=== PATIENT | male | born 1975 | race Caucasian/White ===

== ENCOUNTER 2017-06-17 14:57 | Emergency (ER) | payer OTHER ==
[~2017-06-17] VITALS: Ht 182.9 cm; Wt 108.9 kg
[~2017-06-17 14:57] MED LIST: ALBU90OI; ALBU90OI INH; ALBU90OI61 INH; Amoxicillin500 MG PO; FAMO20 PO; FLUT110OIA INH; GLIP5 PO; HYDACE5 PO; LISI20 PO; LORTAB 10 MG-3473 ML PO; METF500 PO; OMEP20ER; ONDA8ODT MM; PROM25 PO; Prednisone20 MG PO; Prevacid Soluta30 MG PO; Prilosec20 MG PO; RXPROM25 PO
[2017-06-17] MEDS ORDERED: LEVFLO500 PO ×2 (15:57→17:01)
[2017-06-17 16:04] LABS: Source, Urine Clean Catch
[2017-06-17 16:06] LABS: Appearance, Urine Cloudy (Clear); Bilirubin, Urine Neg (Neg); Blood, Urine 2+ (Neg); Color, Urine Yellow (P-Yellow); Glucose Qualitative, Urine Neg (Neg); Ketones, Urine Neg (Neg); Leukocyte Esterase, Urine 3+ (Neg); Nitrite, Urine Pos (Neg); Protein, Urine 2+ (Neg); Specific Gravity, Urine 1.015 (1.003-1.022); Urobilinogen, Urine NORM (Normal)
[2017-06-17 16:13] LABS: Bacteria Many /hpf; Squamous Epithelial Cells Few /hpf (Few); White Blood Cells, Urine TNTC /hpf (0-5)
== END 2017-06-17 17:05 | disposition home or self-care (01) ==
LOC: ER 14:57
PROVIDERS: Physician Assistant
DX: N45.1 Epididymitis (principal); N39.0 Urinary tract infection, site not specified; J45.909 Unspecified asthma, uncomplicated; E11.9 Type 2 diabetes mellitus without complications; Z87.891 Personal history of nicotine dependence
CPT/HCPCS: 76870; 81001; 87077; 87086; 87186; 96372; 99284; J0696

== ENCOUNTER 2017-07-17 02:22 | Emergency (ER) | payer OTHER ==
[~2017-07-17 02:22] MED LIST changes: +LEVFLO500 PO
== END 2017-07-17 02:57 | disposition home or self-care (01) ==
LOC: ER 02:22
DX: L25.9 Unspecified contact dermatitis, unspecified cause (principal); E11.9 Type 2 diabetes mellitus without complications; Z79.84 Long term (current) use of oral hypoglycemic drugs
CPT/HCPCS: 99283; Q0163

== ENCOUNTER → 2021-02-21 | Outpatient (CLI) | payer OTHER | LOC: LAB SHORT 14:45 | DX: R30.9 Painful micturition, unspecified (principal) | CPT/HCPCS: 87077; 87086; 87186 ==

== ENCOUNTER → 2022-11-02 | Outpatient (CLI) | payer OTHER ==
[~2022-11-02] MED LIST changes: +CEPH500 PO; +Pyridium100 MG PO
== END | disposition home or self-care (01) ==
LOC: LAB SHORT 18:31 → LAB 18:31
DX: N10 Acute pyelonephritis (principal)
CPT/HCPCS: 87077; 87086; 87186

== ENCOUNTER 2023-01-28 11:15 | Emergency (ER) | payer OTHER ==
[~2023-01-28] VITALS: Ht 180.3 cm; Wt 136.1 kg
[2023-01-28 12:14] LABS: BASOPHILS ABSOLUTE AUTO 0.04 K/mm3 (0.00-0.23); BASOPHILS PERCENT AUTO 0 % (0-2); EOSINOPHILS PERCENT AUTO 0 % (0-6); Hematocrit 46.3 % (37.0-53.0); Hemoglobin 14.7 g/dL (13.5-17.5); IMMATURE GRAN ABSOLUTE AUTO 0.11 K/mm3 (0.00-0.10); IMMATURE GRAN PERCENT AUTO 1 % (0-1); LYMPHOCYTES ABSOLUTE AUTO 1.06 K/mm3 (0.84-5.20); LYMPHOCYTES PERCENT AUTO 7 % (21-46); MONOCYTES ABSOLUTE AUTO 0.86 K/mm3 (0.16-1.47); MONOCYTES PERCENT AUTO 5 % (4-13); Mean Corpuscular HGB 27.5 pg (26.0-34.0); Mean Corpuscular HGB Conc 31.7 g/dL (31.5-36.5); Mean Corpuscular Volume 87 fL (80-100); Mean Platelet Volume 10.5 fL (9.1-12.4); NEUTROPHILS ABSOLUTE AUTO 13.93 K/mm3 (1.96-9.15); NEUTROPHILS PERCENT AUTO 87 % (41-73); NRBC ABSOLUTE 0.02 K/mm3 (0.00-0.02); NRBC Auto 0.1 /100 WBC (0.0-0.2); Platelet Count 309 K/mm3 (150-400); RDW Coefficient Variation 19.2 % (11.7-14.2); RDW Standard Deviation 57.8 fL (35.1-46.3); Red Blood Cell Count 5.35 M/mm3 (4.30-5.90)
[2023-01-28 12:37] LABS: Albumin, Blood 3.8 g/dL (3.4-5.0); Albumin/Globulin Ratio 0.9 (0.8-1.8); Bilirubin, Total 4.5 mg/dL (0.1-1.0); Bun/Creatinine Ratio 21.5 (12.0-20.0); Calcium, Blood 9.7 mg/dL (8.5-10.1); Creatinine, Blood 1.63 mg/dL (0.60-1.20); Globulin, Blood 4.2 g/dL (2.2-4.0); Potassium, Blood 4.6 mmol/L (3.5-5.5)
[2023-01-28 16:40] LABS: Calcium, Ionized (POC) 0.89 mmol/L (1.10-1.46); Chloride (POC) 102 mmol/L (98-108); Creatinine (POC) 2.1 mg/dL (0.8-1.3); Glucose (ISTAT POC) 33 mg/dL (70-99); Hemoglobin (POC) 16.3 g/dL (13.5-17.5); Potassium (POC) 5.4 mmol/L (3.5-5.5); Sodium (POC) 133 mmol/L (135-148); Total CO2 (POC) 18 mmol/L (21-32)
[2023-01-28 16:48] LABS: Base Excess Venous -14.5 mmol/L; Bicarbonate Venous 14.1 mmol/L (24.0-30.0); PCO2 Venous 39.7 mmHg (38-42); pH Blood Venous 7.16 (7.34-7.37)
[2023-01-28 17:05] LABS: Source, Urine Clean Catch
[2023-01-28 17:21] LABS: Appearance, Urine Cloudy (Clear); Bilirubin, Urine Neg (Neg); Blood, Urine 2+ (Neg); Color, Urine Yellow (P-Yellow); Glucose Qualitative, Urine 4+ (Neg); Ketones, Urine 1+ (Neg); Leukocyte Esterase, Urine 3+ (Neg); Nitrite, Urine Pos (Neg); Protein, Urine 2+ (Neg); Urobilinogen, Urine 2+ (Normal)
[2023-01-28 18:01] LABS: White Blood Cells, Urine 25-50 /hpf (0-5)
[2023-01-28 18:02] LABS: Bacteria Many /hpf; Squamous Epithelial Cells Rare /hpf (Few)
[2023-01-28 18:59] LABS: D-Dimer, Quantitative 7.45 mg/L FEU (0.00-0.52); International Normalized Ratio 3.25; Prothrombin Time Results 31.9 Sec (9.7-11.5)
[2023-01-28 19:00] LABS: BASOPHILS ABSOLUTE AUTO 0.04 K/mm3 (0.00-0.23); BASOPHILS PERCENT AUTO 0 % (0-2); EOSINOPHILS ABSOLUTE AUTO 0.01 K/mm3 (0.00-0.68); EOSINOPHILS PERCENT AUTO 0 % (0-6); Hematocrit 42.4 % (37.0-53.0); Hemoglobin 13.2 g/dL (13.5-17.5); IMMATURE GRAN ABSOLUTE AUTO 0.26 K/mm3 (0.00-0.10); IMMATURE GRAN PERCENT AUTO 2 % (0-1); LYMPHOCYTES ABSOLUTE AUTO 1.05 K/mm3 (0.84-5.20); LYMPHOCYTES PERCENT AUTO 6 % (21-46); MONOCYTES ABSOLUTE AUTO 1.21 K/mm3 (0.16-1.47); MONOCYTES PERCENT AUTO 7 % (4-13); Mean Corpuscular HGB 27.4 pg (26.0-34.0); Mean Corpuscular HGB Conc 31.1 g/dL (31.5-36.5); Mean Corpuscular Volume 88 fL (80-100); Mean Platelet Volume 11.3 fL (9.1-12.4); NEUTROPHILS ABSOLUTE AUTO 14.45 K/mm3 (1.96-9.15); NEUTROPHILS PERCENT AUTO 85 % (41-73); NRBC ABSOLUTE 0.03 K/mm3 (0.00-0.02); NRBC Auto 0.2 /100 WBC (0.0-0.2); Platelet Count 258 K/mm3 (150-400); RDW Coefficient Variation 19.5 % (11.7-14.2); RDW Standard Deviation 60.5 fL (35.1-46.3); Red Blood Cell Count 4.81 M/mm3 (4.30-5.90); White Blood Cell Count 17.02 K/mm3 (4.00-11.30)
[2023-01-28 19:21] LABS: Albumin, Blood 3.3 g/dL (3.4-5.0); Albumin/Globulin Ratio 0.9 (0.8-1.8); Bun/Creatinine Ratio 20.7 (12.0-20.0); Creatinine, Blood 1.79 mg/dL (0.60-1.20); Globulin, Blood 3.6 g/dL (2.2-4.0); Potassium, Blood 4.6 mmol/L (3.5-5.5); Total Protein, Blood 6.9 g/dL (6.4-8.2)
[2023-01-28 21:15] LABS: Calcium, Ionized (POC) 0.92 mmol/L (1.10-1.46); Chloride (POC) 101 mmol/L (98-108); Glucose (ISTAT POC) 98 mg/dL (70-99); Hemoglobin (POC) 14.3 g/dL (13.5-17.5); PCO2 Arterial 32.4 mmHg (35-45); PO2 Arterial 106 mmHg (80-100); Potassium (POC) 4.1 mmol/L (3.5-5.5); Sodium (POC) 135 mmol/L (135-148); Total CO2 (POC) 18 mmol/L (21-32); pH Blood Arterial 7.34 (7.35-7.45)
[2023-01-28 22:08] LABS: Alanine Aminotransfer (ALT/SGP 350 U/L (12-78); Albumin, Blood 2.7 g/dL (3.4-5.0); Alk Phos 118 U/L (50-136); Anion Gap 18 mmol/L (6-16); Aspartate Aminotrans (AST/SGOT 922 U/L (12-37); Bilirubin, Direct 3.9 mg/dL (0.0-0.3); Bilirubin, Indirect 0.8 mg/dL (0.1-0.7); Bilirubin, Total 4.7 mg/dL (0.1-1.0); Blood Urea Nitrogen 37 mg/dL (8-24); Bun/Creatinine Ratio 20.9 (12.0-20.0); CO2, Blood 20 mmol/L (21-32); Calcium, Blood 8.3 mg/dL (8.5-10.1); Chloride, Blood 102 mmol/L (98-108); Creatinine, Blood 1.77 mg/dL (0.60-1.20); Ethanol (Alcohol), Blood, Med <3 mg/dL; Globulin, Blood 2.8 g/dL (2.2-4.0); Glomerular Filtration Rate 47 (60-); Glucose, Blood 124 mg/dL (70-99); Magnesium, Blood 2.2 mg/dL (1.6-2.4); Phosphorus, Blood 5.3 mg/dL (2.5-4.9); Potassium, Blood 4.3 mmol/L (3.5-5.5); Sodium, Blood 140 mmol/L (136-145); Total Protein, Blood 5.5 g/dL (6.4-8.2)
[2023-01-28 22:13] LABS: U Amphetamine Screen DETECTED; U Barbituate Screen Not Detected; U Benzodiazapine Screen DETECTED; U Buprenorphine Screen Not Detected; U Cannabinoids Screen DETECTED; U Cocaine Screen Not Detected; U Methadone Screen Not Detected; U Methamphetamine Screen DETECTED; U Opiates Screen Not Detected; U Oxycodone Screen Not Detected; U Phencyclidine Screen Not Detected; U Propoxyphene Screen Not Detected
[2023-01-28 22:50] VITALS: BP 118/77
== END 2023-01-28 23:41 | disposition short-term general hospital (02) ==
LOC: ER 11:15
PROVIDERS: Emergency Medicine; Physician Assistant; Student in an Organized Health Care Education/Training Program
DX: N12 Tubulo-interstitial nephritis, not specified as acute or chronic (principal); R65.20 Severe sepsis without septic shock; N13.9 Obstructive and reflux uropathy, unspecified; R33.9 Retention of urine, unspecified; I47.20 Ventricular tachycardia, unspecified; K92.2 Gastrointestinal hemorrhage, unspecified; D68.9 Coagulation defect, unspecified; Z87.891 Personal history of nicotine dependence
CPT/HCPCS: 31500; 36415; 36556; 36600; 51102; 70450; 71045; 74177; 76705; 80047; 80053; 81001; 82248; 82803; 82947; 83605; 83690; 83735; 84100; 85014; 85025; 85379; 85610; 85730; 86850; 86900; 86901; 87040; 87086; 94002; 96361-59; 96365-59; 96375-59; 96376-59; 99291-25; 99292; C1729; C1751; C1769; C1894; J0282; J1170; J1885; J2405; J2543; J2704; J7030; J7060; J7121; Q9967

== ENCOUNTER 2023-03-06 08:29 | Emergency (ER) | payer OTHER ==
[~2023-03-06] VITALS: Ht 180.3 cm; Wt 108.9 kg
[2023-03-06 09:59] LABS: BASOPHILS ABSOLUTE AUTO 0.04 K/mm3 (0.00-0.23); BASOPHILS PERCENT AUTO 0 % (0-2); EOSINOPHILS ABSOLUTE AUTO 0.39 K/mm3 (0.00-0.68); EOSINOPHILS PERCENT AUTO 4 % (0-6); Hematocrit 34.2 % (37.0-53.0); Hemoglobin 10.7 g/dL (13.5-17.5); IMMATURE GRAN ABSOLUTE AUTO 0.08 K/mm3 (0.00-0.10); IMMATURE GRAN PERCENT AUTO 1 % (0-1); LYMPHOCYTES ABSOLUTE AUTO 1.64 K/mm3 (0.84-5.20); LYMPHOCYTES PERCENT AUTO 17 % (21-46); MONOCYTES ABSOLUTE AUTO 0.74 K/mm3 (0.16-1.47); MONOCYTES PERCENT AUTO 8 % (4-13); Mean Corpuscular HGB 28.8 pg (26.0-34.0); Mean Corpuscular HGB Conc 31.3 g/dL (31.5-36.5); Mean Corpuscular Volume 92 fL (80-100); Mean Platelet Volume 10.3 fL (9.1-12.4); NEUTROPHILS ABSOLUTE AUTO 6.53 K/mm3 (1.96-9.15); NEUTROPHILS PERCENT AUTO 69 % (41-73); Platelet Count 229 K/mm3 (150-400); RDW Coefficient Variation 18.4 % (11.7-14.2); RDW Standard Deviation 62.1 fL (35.1-46.3); Red Blood Cell Count 3.72 M/mm3 (4.30-5.90); White Blood Cell Count 9.42 K/mm3 (4.00-11.30)
[2023-03-06 10:17] LABS: International Normalized Ratio 2.19
[2023-03-06 10:35] LABS: Albumin, Blood 2.9 g/dL (3.4-5.0); Albumin/Globulin Ratio 0.7 (0.8-1.8); Bilirubin, Direct 1.3 mg/dL (0.0-0.3); Bilirubin, Indirect 0.3 mg/dL (0.1-0.7); Bilirubin, Total 1.6 mg/dL (0.1-1.0); Bun/Creatinine Ratio 11.4 (12.0-20.0); Calcium, Blood 8.3 mg/dL (8.5-10.1); Creatinine, Blood 0.88 mg/dL (0.60-1.20); Globulin, Blood 4.4 g/dL (2.2-4.0); Magnesium, Blood 1.6 mg/dL (1.6-2.4); Potassium, Blood 3.8 mmol/L (3.5-5.5); Total Protein, Blood 7.3 g/dL (6.4-8.2)
[2023-03-06] MEDS ORDERED: JANTOVEN10 M2 PO (10:41)
[2023-03-06] MEDS ORDERED: Ventolin/Prove6.7 GM INH (10:41)
[2023-03-06] MEDS ORDERED: POTA10T (10:42)
[2023-03-06] MEDS ORDERED: SPIR25 PO (13:16)
[2023-03-06] MEDS ORDERED: FURO20 PO (13:16)
[2023-03-06 13:30] VITALS: BP 140/115
== END 2023-03-06 13:43 | disposition home or self-care (01) ==
LOC: ER 08:29
PROVIDERS: Physician Assistant
DX: K76.0 Fatty (change of) liver, not elsewhere classified (principal); R79.89 Other specified abnormal findings of blood chemistry; E80.6 Other disorders of bilirubin metabolism; D68.9 Coagulation defect, unspecified; E11.9 Type 2 diabetes mellitus without complications; J45.909 Unspecified asthma, uncomplicated; Z87.891 Personal history of nicotine dependence; Z79.899 Other long term (current) drug therapy; Z96.0 Presence of urogenital implants
CPT/HCPCS: 80048; 80076; 83735; 83880; 85025; 85610; 96374; 99284-25; A9270; J1940

== ENCOUNTER 2023-03-21 10:04 | Emergency (ER) | payer OTHER ==
[~2023-03-21] VITALS: Ht 180.3 cm; Wt 108.9 kg
[~2023-03-21 10:04] MED LIST changes: +FURO20 PO; +JANTOVEN10 M2 PO; +POTA10T; +SPIR25 PO; +Ventolin/Prove6.7 GM INH
[2023-03-21 13:00] VITALS: BP 146/111
== END 2023-03-21 13:27 | disposition home or self-care (01) ==
LOC: ER 10:04
DX: T83.028A Displacement of other urinary catheter, initial encounter (principal); Y73.2 Prosthetic and other implants, materials and accessory gastroenterology and urology devices associated with adverse incidents; E11.9 Type 2 diabetes mellitus without complications; J45.909 Unspecified asthma, uncomplicated; Z87.891 Personal history of nicotine dependence; Z79.01 Long term (current) use of anticoagulants; Z79.899 Other long term (current) drug therapy; Z88.8 Allergy status to other drugs, medicaments and biological substances
CPT/HCPCS: 51102; 99283-25

== ENCOUNTER 2023-03-31 09:36 | Emergency (ER) | payer OTHER ==
[~2023-03-31] VITALS: Ht 180.3 cm; Wt 108.9 kg
[2023-03-31 09:50] VITALS: BP 162/117
== END 2023-03-31 10:01 | disposition home or self-care (01) ==
LOC: ER 09:36
DX: T83.030A Leakage of cystostomy catheter, initial encounter (principal); J45.909 Unspecified asthma, uncomplicated; E11.9 Type 2 diabetes mellitus without complications; Z88.8 Allergy status to other drugs, medicaments and biological substances; Z79.01 Long term (current) use of anticoagulants; Z79.899 Other long term (current) drug therapy; Z87.891 Personal history of nicotine dependence
CPT/HCPCS: 99282

== ENCOUNTER 2023-04-11 11:44 | Emergency (ER) | payer OTHER ==
[~2023-04-11] VITALS: Ht 180.3 cm; Wt 108.9 kg
[2023-04-11 15:58] LABS: Source, Urine Suprapubic Cath
[2023-04-11 16:13] LABS: Appearance, Urine Hazy (Clear); Bilirubin, Urine Neg (Neg); Blood, Urine 5+ (Neg); Color, Urine Yellow (P-Yellow); Glucose Qualitative, Urine Neg (Neg); Ketones, Urine Neg (Neg); Leukocyte Esterase, Urine 3+ (Neg); Nitrite, Urine Neg (Neg); Protein, Urine 3+ (Neg); Urobilinogen, Urine 1+ (Normal)
[2023-04-11 16:30] LABS: Red Blood Cells, Urine TNTC /hpf (0-2); White Blood Cells, Urine TNTC /hpf (0-5)
[2023-04-11 16:31] LABS: Bacteria Many /hpf; Hyaline Casts 0-2 /lpf (0-2); Squamous Epithelial Cells Few /hpf (Few); Transitional Epithelial Cells Few /hpf (0-Rare)
[2023-04-11 16:45] VITALS: BP 148/100
[2023-04-11] MEDS ORDERED: CEFD300 PO (17:03)
== END 2023-04-11 17:07 | disposition home or self-care (01) ==
LOC: ER 11:44
PROVIDERS: Student in an Organized Health Care Education/Training Program
DX: T83.511A Infection and inflammatory reaction due to indwelling urethral catheter, initial encounter (principal); N39.0 Urinary tract infection, site not specified; Y73.2 Prosthetic and other implants, materials and accessory gastroenterology and urology devices associated with adverse incidents; Z87.891 Personal history of nicotine dependence; J45.909 Unspecified asthma, uncomplicated; E11.9 Type 2 diabetes mellitus without complications; Z79.01 Long term (current) use of anticoagulants; Z79.899 Other long term (current) drug therapy; Z88.8 Allergy status to other drugs, medicaments and biological substances
CPT/HCPCS: 51700; 51798; 81001; 87077; 87086; 87186; 99283-25; A9270

== ENCOUNTER 2023-04-18 17:59 | Emergency (ER) | payer OTHER ==
[~2023-04-18] VITALS: Ht 180.3 cm; Wt 108.9 kg
[~2023-04-18 17:59] MED LIST changes: +CEFD300 PO
[2023-04-18 18:01] VITALS: BP 153/126
== END 2023-04-18 21:04 | disposition home or self-care (01) ==
LOC: ER 17:59
DX: T83.028A Displacement of other urinary catheter, initial encounter (principal); Y73.2 Prosthetic and other implants, materials and accessory gastroenterology and urology devices associated with adverse incidents; J45.909 Unspecified asthma, uncomplicated; Z79.01 Long term (current) use of anticoagulants; Z79.899 Other long term (current) drug therapy; Z88.8 Allergy status to other drugs, medicaments and biological substances; Z87.891 Personal history of nicotine dependence
CPT/HCPCS: 99283

== ENCOUNTER 2023-04-24 08:10 | Inpatient (IN) | payer OTHER ==
[~2023-04-24] VITALS: Ht 180.3 cm; Wt 108.9 kg
[2023-04-24 09:03] LABS: BASOPHILS ABSOLUTE AUTO 0.03 K/mm3 (0.00-0.23); BASOPHILS PERCENT AUTO 0 % (0-2); EOSINOPHILS ABSOLUTE AUTO 0.03 K/mm3 (0.00-0.68); EOSINOPHILS PERCENT AUTO 0 % (0-6); Hematocrit 40.2 % (37.0-53.0); Hemoglobin 12.6 g/dL (13.5-17.5); IMMATURE GRAN ABSOLUTE AUTO 0.03 K/mm3 (0.00-0.10); IMMATURE GRAN PERCENT AUTO 0 % (0-1); LYMPHOCYTES ABSOLUTE AUTO 0.93 K/mm3 (0.84-5.20); LYMPHOCYTES PERCENT AUTO 9 % (21-46); MONOCYTES ABSOLUTE AUTO 0.49 K/mm3 (0.16-1.47); MONOCYTES PERCENT AUTO 5 % (4-13); Mean Corpuscular HGB 26.1 pg (26.0-34.0); Mean Corpuscular HGB Conc 31.3 g/dL (31.5-36.5); Mean Corpuscular Volume 83 fL (80-100); Mean Platelet Volume 10.5 fL (9.1-12.4); NEUTROPHILS ABSOLUTE AUTO 9.16 K/mm3 (1.96-9.15); NEUTROPHILS PERCENT AUTO 86 % (41-73); Platelet Count 231 K/mm3 (150-400); RDW Coefficient Variation 17.8 % (11.7-14.2); RDW Standard Deviation 53.6 fL (35.1-46.3); Red Blood Cell Count 4.83 M/mm3 (4.30-5.90); White Blood Cell Count 10.67 K/mm3 (4.00-11.30)
[2023-04-24 09:17] LABS: Albumin, Blood 3.6 g/dL (3.4-5.0); Albumin/Globulin Ratio 0.8 (0.8-1.8); Bilirubin, Total 1.4 mg/dL (0.1-1.0); Bun/Creatinine Ratio 16.1 (12.0-20.0); Calcium, Blood 9.1 mg/dL (8.5-10.1); Creatinine, Blood 0.81 mg/dL (0.60-1.20); Globulin, Blood 4.7 g/dL (2.2-4.0); Potassium, Blood 4.2 mmol/L (3.5-5.5); Total Protein, Blood 8.3 g/dL (6.4-8.2)
[2023-04-24 13:04] VITALS: BP 154/118
[2023-04-24 14:02] VITALS: BP 136/102
[2023-04-24 14:11] LABS: International Normalized Ratio 2.66; Prothrombin Time Results 26.4 Sec (9.7-11.5)
--- NOTE | 2023-04-24 16:27 | NUR ---
SHIFT SUMMARY PT A&OX4, VSS/RA, ANSELMO PO/[id number] ICE CHIPS OK, PAIN MANAGED WITH FENT 25 MCGS, AMB INDEPENDENTLY, HAS NOT VOIDED SINCE ARRIVAL TO UNIT, PLAN FOR TRANSFER TOMORROW. WILL REPORT TO ONCOMING NOC RN.
[2023-04-24 18:58] VITALS: BP 128/83
--- NOTE | 2023-04-24 21:57 | NUR ---
TELE CALL FROM TELE TO REPORT PT EXPERIENCED 5 BEAT RUN OF V-TACH. PT ASSESSED, ASYMPTOMATIC. NO NEEDS EXPRESSED. PT ASLEEP ON L SIDE AT THIS TIME. CALL LIGHT WITHIN REACH.
--- NOTE | 2023-04-25 03:45 | NUR ---
NOTIFIED PER MARKETING EDUCATION TEACHER ELIS PT HAD 5 BEAT RUN OF V TACH AND HAS HAD 3-4 OTHER RUNS SAME TONIGHT.PT IS SLEEPING. I CALLED DR SNATAMARIA TO NOTIFY AND MAG LEVEL WAS ORDERED FOR AM.
[2023-04-25 04:54] VITALS: BP 157/106
[2023-04-25 05:53] LABS: Hematocrit 39.3 % (37.0-53.0); Mean Corpuscular HGB 25.4 pg (26.0-34.0); Mean Corpuscular HGB Conc 30.5 g/dL (31.5-36.5); Mean Corpuscular Volume 83 fL (80-100); Mean Platelet Volume 10.1 fL (9.1-12.4); Platelet Count 257 K/mm3 (150-400); RDW Coefficient Variation 18.1 % (11.7-14.2); RDW Standard Deviation 54.8 fL (35.1-46.3); Red Blood Cell Count 4.72 M/mm3 (4.30-5.90)
[2023-04-25 06:25] LABS: Albumin, Blood 3.1 g/dL (3.4-5.0); Albumin/Globulin Ratio 0.8 (0.8-1.8); Bilirubin, Total 1.3 mg/dL (0.1-1.0); Bun/Creatinine Ratio 12.9 (12.0-20.0); Calcium, Blood 8.7 mg/dL (8.5-10.1); Creatinine, Blood 0.85 mg/dL (0.60-1.20); Globulin, Blood 4.1 g/dL (2.2-4.0); Magnesium, Blood 1.9 mg/dL (1.6-2.4); Potassium, Blood 3.9 mmol/L (3.5-5.5); Total Protein, Blood 7.2 g/dL (6.4-8.2)
--- NOTE | 2023-04-25 06:42 | NUR ---
SHIFT SUMMARY S/P ABD PAIN. VS WNL FOR PT. TOLERATING CLEAR DIET, [place] SODA & WATER ONLY OVERNIGHT. URINATING INDEPENDENTLY, BEDREST AT THIS TIME. PT SLEPT WELL OVERNIGHT. PT REPORTS NO PAIN. CARDIAC CONCERNS PER PREVIOUS NOTES. ANTICIPATED TRANSFER TO [place] TODAY. CALL LIGHT WITHIN REACH, BED IN LOWEST POSITION, WILL REPORT TO DAY RN.
[2023-04-25 07:05] VITALS: BP 157/110
--- NOTE | 2023-04-25 08:00 | NUR ---
[employer] NOTIFIED THIS NURSE SAYING PATIENT HAD A RUN OF SVT. THIS NURSE WENT TO GO CHECK ON THE PATIENT. PATIENT WAS LAYING IN BED WITH EYES CLOSED WITH EVEN/EQUAL RESPIRATIONS AND SNORING VERY LOUDLY WITH CALL LIGHT IN REACH. THIS NURSE CALLED DR. JAY AND WAS NOTIFIED ON THIS. DR. JAY SAID TO PUT IN A BMP LAB ORDER ON PATIENT.
[2023-04-25 08:58] LABS: International Normalized Ratio 2.92; Prothrombin Time Results 28.9 Sec (9.7-11.5)
[2023-04-25 09:58] LABS: Calcium, Blood 8.4 mg/dL (8.5-10.1); Creatinine, Blood 0.83 mg/dL (0.60-1.20); Potassium, Blood 3.7 mmol/L (3.5-5.5)
--- NOTE | 2023-04-25 15:11 | NUR ---
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
--- NOTE | 2023-04-25 15:50 | NUR ---
SHIFT SUMMARY: PATIENT IS A&OX4. VS ARE WNL FOR PATIENT WITH BOTH DR. JAY AND DR. GIRON ARE AWARE OF AND HAS BEEN GOING ON FOR THE PAST 3 WEEKS. PATIENT HAS DENIED PAIN OR NAUSEA SO FAR THIS SHIFT. PATIENT IS TOLERATING HIS REGULAR DIET. HE IS VOIDING, PASSING GAS, AND PATIENT REPORTS HAVING X2 BM'S TODAY. PATIENT IS INDEP. IN THE ROOM. PATIENT CALLS APPROPRIATELY. HE IS CURRENTLY LAYING IN BED WITH CALL LIGHT IN REACH. [facility]TY OJSHI CALLED THIS MORNING SAYING THEY WERE AT [facility] BUT ONCE THEY HAD A AVAILABLE BED THEY WOULD CALL TO HAVE HIM TRANSFERRED. THE PLAN IS TO HAVE THE PATIENT NPO AT MIDNIGHT TONIGHT A PRECAUTION IN CASE [facility] JOSHI IS ABLE TO HAVE HIM TRANSFERRED THEN TO HAVE SURGERY.
[2023-04-25 16:33] VITALS: BP 158/114
[2023-04-25 19:26] VITALS: BP 168/122
[2023-04-25 21:03] VITALS: BP 151/96
--- NOTE | 2023-04-26 04:51 | NUR ---
SHIFT SUMMARY NO EVENTS OVER NIGHT. PT ABLE TO SLEEP T/O NIGHT. PT HAS BEEN NPO SINCE MD FOR POSSIBLE TRANSFER AND SURGERY. PT VOIDING AND PASSING GAS. DENIES ANY PAIN. VSS. NO OTHER CANCERNS AT THIS TIME. CALL LIGHT WITHIN REACH
[2023-04-26 05:10] VITALS: BP 168/112
[2023-04-26 07:15] VITALS: BP 165/120
[2023-04-26 07:16] VITALS: BP 166/122
--- NOTE | 2023-04-26 07:37 | NUR ---
ASSESSMENT: PT SLEEPING. NO S/S DISTRESS OR PAIN. HYPERTENSIVE THIS AM. PRN HYDRALAZINE GIVEN. WILL CONT TO MMONITOR AND FULLY ASSESS WHEN PT IS ALERT AND AWAKE.
[2023-04-26 08:28] VITALS: BP 156/108
[2023-04-26 08:41] LABS: International Normalized Ratio 2.27; Prothrombin Time Results 22.8 Sec (9.7-11.5)
--- NOTE | 2023-04-26 10:31 | NUR ---
DISCHARGE: PLAN FOR PT TO DC HOME AND FOLLOW UP IN [place] WITH GENERAL SURGERY. HOSPITALIST NOTIFIED AND WILL PUT IN DC ORDERS.
--- NOTE | 2023-04-26 12:35 | NUR ---
DISCHARGE: DC TO HOME AT THIS TIME WITH FAMILY. PT VERBALIZED UNDERSTANDING OF INSTRUCTIONS, FOLLOW UP, AND MADICATIONS. IV DC'D WNL. PT LEFT AMBULATORY TO CAR WITH BELONGINGS.
== END 2023-04-26 12:35 | disposition home or self-care (01) | DRG 394 ==
LOC: ER 08:10 → SURS 11:03
PROVIDERS: Emergency Medicine; ADMIT Internal Medicine
DX: K42.0 Umbilical hernia with obstruction, without gangrene (principal); R18.8 Other ascites; J45.909 Unspecified asthma, uncomplicated; N32.89 Other specified disorders of bladder; K66.8 Other specified disorders of peritoneum; I10 Essential (primary) hypertension; Q54.9 Hypospadias, unspecified; K74.60 Unspecified cirrhosis of liver; Z86.718 Personal history of other venous thrombosis and embolism
CPT/HCPCS: 36415; 36416; 74177; 80048; 80053; 82947; 83605; 83735; 85025; 85027; 85610; 86850; 86900; 86901; 96361; 96374; 96375; 96376; 99285-25; J0360; J1170; J2405; J3010; J7030; Q9967

== ENCOUNTER → 2023-05-21 | Outpatient (CLI) | payer OTHER | LOC: LAB SHORT 13:03 → LAB 13:03 | DX: R30.0 Dysuria (principal) | CPT/HCPCS: 87077; 87086; 87186 ==

== ENCOUNTER → 2023-12-03 | Outpatient (CLI) | payer OTHER ==
[2023-12-03 16:26] LABS: BASOPHILS ABSOLUTE AUTO 0.05 K/mm3 (0.00-0.23); BASOPHILS PERCENT AUTO 1 % (0-2); EOSINOPHILS ABSOLUTE AUTO 0.67 K/mm3 (0.00-0.68); EOSINOPHILS PERCENT AUTO 10 % (0-6); Hematocrit 41.3 % (37.0-53.0); Hemoglobin 13.2 g/dL (13.5-17.5); IMMATURE GRAN ABSOLUTE AUTO 0.01 K/mm3 (0.00-0.10); IMMATURE GRAN PERCENT AUTO 0 % (0-1); LYMPHOCYTES ABSOLUTE AUTO 1.37 K/mm3 (0.84-5.20); LYMPHOCYTES PERCENT AUTO 20 % (21-46); MONOCYTES ABSOLUTE AUTO 0.71 K/mm3 (0.16-1.47); MONOCYTES PERCENT AUTO 10 % (4-13); Mean Corpuscular HGB 28.2 pg (26.0-34.0); Mean Corpuscular Volume 88 fL (80-100); Mean Platelet Volume 10.9 fL (9.1-12.4); NEUTROPHILS ABSOLUTE AUTO 4.23 K/mm3 (1.96-9.15); NEUTROPHILS PERCENT AUTO 60 % (41-73); Platelet Count 218 K/mm3 (150-400); RDW Coefficient Variation 17.4 % (11.7-14.2); RDW Standard Deviation 56.5 fL (35.1-46.3); Red Blood Cell Count 4.68 M/mm3 (4.30-5.90); White Blood Cell Count 7.04 K/mm3 (4.00-11.30)
[2023-12-03 17:56] LABS: Albumin, Blood 3.4 g/dL (3.4-5.0); Albumin/Globulin Ratio 0.9 (0.8-1.8); Bilirubin, Total 1.3 mg/dL (0.1-1.0); Bun/Creatinine Ratio 21.7 (12.0-20.0); Calcium, Blood 8.6 mg/dL (8.5-10.1); Creatinine, Blood 1.06 mg/dL (0.60-1.20); Globulin, Blood 3.9 g/dL (2.2-4.0); Potassium, Blood 4.1 mmol/L (3.5-5.5); Total Protein, Blood 7.3 g/dL (6.4-8.2)
== END | disposition home or self-care (01) ==
LOC: LAB SHORT 15:00 → LAB 15:00
PROVIDERS: Family Medicine
DX: I11.0 Hypertensive heart disease with heart failure (principal); I50.23 Acute on chronic systolic (congestive) heart failure
CPT/HCPCS: 80053; 83880; 85025

== ENCOUNTER → 2024-02-06 | Outpatient (CLI) | payer OTHER ==
[2024-02-06 17:51] LABS: BASOPHILS ABSOLUTE AUTO 0.03 K/mm3 (0.00-0.23); BASOPHILS PERCENT AUTO 0 % (0-2); EOSINOPHILS ABSOLUTE AUTO 0.28 K/mm3 (0.00-0.68); EOSINOPHILS PERCENT AUTO 3 % (0-6); Hematocrit 36.2 % (37.0-53.0); Hemoglobin 11.8 g/dL (13.5-17.5); IMMATURE GRAN ABSOLUTE AUTO 0.29 K/mm3 (0.00-0.10); IMMATURE GRAN PERCENT AUTO 3 % (0-1); LYMPHOCYTES ABSOLUTE AUTO 1.58 K/mm3 (0.84-5.20); LYMPHOCYTES PERCENT AUTO 14 % (21-46); MONOCYTES ABSOLUTE AUTO 1.48 K/mm3 (0.16-1.47); MONOCYTES PERCENT AUTO 13 % (4-13); Mean Corpuscular HGB 27.4 pg (26.0-34.0); Mean Corpuscular HGB Conc 32.6 g/dL (31.5-36.5); Mean Corpuscular Volume 84 fL (80-100); Mean Platelet Volume 11.5 fL (9.1-12.4); NEUTROPHILS ABSOLUTE AUTO 7.71 K/mm3 (1.96-9.15); NEUTROPHILS PERCENT AUTO 68 % (41-73); Platelet Count 172 K/mm3 (150-400); RDW Standard Deviation 50.6 fL (35.1-46.3); White Blood Cell Count 11.37 K/mm3 (4.00-11.30)
[2024-02-06 18:24] LABS: Albumin, Blood 3.2 g/dL (3.4-5.0); Bilirubin, Total 1.5 mg/dL (0.1-1.0); Bun/Creatinine Ratio 29.7 (12.0-20.0); Calcium, Blood 8.3 mg/dL (8.5-10.1); Creatinine, Blood 1.58 mg/dL (0.60-1.20); Globulin, Blood 3.3 g/dL (2.2-4.0); Potassium, Blood 3.9 mmol/L (3.5-5.5); Total Protein, Blood 6.5 g/dL (6.4-8.2)
== END ==
LOC: LAB 16:06 → LAB SHORT 16:06
PROVIDERS: Family Medicine
DX: I50.23 Acute on chronic systolic (congestive) heart failure (principal)
CPT/HCPCS: 80053; 83735; 85025

== ENCOUNTER 2024-07-07 07:14 | Observation (INO) | payer OTHER ==
[~2024-07-07] VITALS: Ht 182.9 cm; Wt 111.8 kg
[2024-07-07] MEDS ORDERED: FentaNYL Citrate 50 MCG/ML 2 ML Injection IV ONE (07:40)
[2024-07-07] MEDS ORDERED: Ondansetron HCl 2 MG / ML 2ML Vial ONE (07:42)
[2024-07-07] MEDS ORDERED: Ondansetron HCl 2 MG / ML 2ML Vial IV ONE (07:45)
[2024-07-07 07:51] LABS: BASOPHILS ABSOLUTE AUTO 0.06 K/mm3 (0.00-0.23); BASOPHILS PERCENT AUTO 1 % (0-2); EOSINOPHILS ABSOLUTE AUTO 0.26 K/mm3 (0.00-0.68); EOSINOPHILS PERCENT AUTO 2 % (0-6); Hemoglobin 13.5 g/dL (13.5-17.5); IMMATURE GRAN ABSOLUTE AUTO 0.05 K/mm3 (0.00-0.10); IMMATURE GRAN PERCENT AUTO 0 % (0-1); LYMPHOCYTES ABSOLUTE AUTO 1.31 K/mm3 (0.84-5.20); LYMPHOCYTES PERCENT AUTO 10 % (21-46); MONOCYTES ABSOLUTE AUTO 1.09 K/mm3 (0.16-1.47); MONOCYTES PERCENT AUTO 8 % (4-13); Mean Corpuscular HGB 28.1 pg (26.0-34.0); Mean Corpuscular HGB Conc 32.1 g/dL (31.5-36.5); Mean Corpuscular Volume 88 fL (80-100); Mean Platelet Volume 10.7 fL (9.1-12.4); NEUTROPHILS ABSOLUTE AUTO 10.56 K/mm3 (1.96-9.15); NEUTROPHILS PERCENT AUTO 79 % (41-73); Platelet Count 223 K/mm3 (150-400); RDW Coefficient Variation 18.6 % (11.7-14.2); RDW Standard Deviation 59.6 fL (35.1-46.3); White Blood Cell Count 13.33 K/mm3 (4.00-11.30)
[2024-07-07] MEDS ORDERED: HYDROmorphone HCl/Pf 1MG SYR IV ONE ×3 (07:55→11:20)
[2024-07-07 08:06] LABS: Albumin, Blood 4.3 g/dL (3.4-5.0); Albumin/Globulin Ratio 1.4 (0.8-1.8); Bilirubin, Total 1.7 mg/dL (0.1-1.0); Bun/Creatinine Ratio 11.3 (12.0-20.0); Calcium, Blood 9.4 mg/dL (8.5-10.1); Creatinine, Blood 0.88 mg/dL (0.60-1.20); Globulin, Blood 3.1 g/dL (2.2-4.0); Potassium, Blood 3.8 mmol/L (3.5-5.5); Total Protein, Blood 7.4 g/dL (6.4-8.2)
[2024-07-07] MEDS ORDERED: Albuterol 2.5 MG/3 ML VIAL INH ONE (09:15)
[2024-07-07 09:20] LABS: International Normalized Ratio 1.36; Prothrombin Time Results 14.2 Sec (9.7-11.5)
[2024-07-07] MEDS ORDERED: Furosemide 10 MG/ML 4ML Vial IV ONE (12:15)
[2024-07-07] MEDS ORDERED: OxyCODONE HCL 5 MG TAB PO PRN (13:05)
[2024-07-07] MEDS ORDERED: Polyethylene Glycol 3350 17 gm PO PRN (13:05)
[2024-07-07 15:22] LABS: Source, Urine Suprapubic Cath
[2024-07-07 15:28] LABS: Appearance, Urine Hazy (Clear); Bilirubin, Urine Neg (Neg); Blood, Urine 5+ (Neg); Glucose Qualitative, Urine Neg (Neg); Ketones, Urine Neg (Neg); Leukocyte Esterase, Urine 2+ (Neg); Nitrite, Urine Neg (Neg); Protein, Urine Neg (Neg); Urobilinogen, Urine NORM (Normal)
[2024-07-07 15:40] VITALS: BP 144/116
[2024-07-07 15:40] LABS: Color, Urine Pale Yellow (P-Yellow)
[2024-07-07 15:42] LABS: Bacteria Few /hpf; Red Blood Cells, Urine TNTC /hpf (0-2); Squamous Epithelial Cells Few /hpf (Few)
--- NOTE | 2024-07-07 17:29 | NUR ---
ADMISSION AND SHIFT SUMMARY PATIENT ADMITTED TO MEDICAL FLOOR. PATIENT ALERT AND INTERACTIVE. PATIENT VERBALIZING 10/10 PAIN ON ARRIVAL. PATIENT MEDICATED WITH ORAL PAIN MEDS WITH GOOD RELIEF. ADMISSION ASSESSMENT COMPLETE. HERNIA REDUCED BY DR GIRON IN ER. PATIENT TO HAVE PARACENTESIS AT SOME POINT. PATIENT HAS CHRONIC SUPRAPUBIC CATHETER THAT WAS CHANGED BY ER PROVIDER PER REPORT. FAMILY TO BRING IN HOME MEDS TO COMPLETE HOME MED LIST. PATIENT UNABLE TO REMEMBER MEDICATIONS, STATES HE TAKES A LOT OF MEDICATIONS.
[2024-07-07] MEDS ORDERED: Ipratropium/Albuterol SulF 2.5-0.5MG/3 ML Amp INH SCH (20:20)
[2024-07-07] MEDS ORDERED: Albuterol 2.5 MG/3 ML VIAL INH PRN (20:20)
[2024-07-07] MEDS ORDERED: Albuterol 2.5 MG/3 ML VIAL ONE (20:26)
[2024-07-07 20:27] VITALS: BP 131/92
[2024-07-07] MEDS ORDERED: Docusate Sodium/Senna 1 Tab PO SCH (21:00)
[2024-07-08 04:59] VITALS: BP 111/94
--- NOTE | 2024-07-08 05:57 | NUR ---
SHIFT SUMMARY PT A&Ox4 AND PLEASANT. PT C/O PAIN IN ABD THAT WAS RELIEVED WITH PAIN MEDICATION PER EMAR. TOLERATING A CL DIET, DENIES ANY NAUSEA OR VOMMITING. PT STATED HE WAS DISSAPOINTED WITH CL LIQUID DIET AND WANTED TO EAT SOLID FOOD. PT EDUCATED ON PURPOSE OF CL DIET AT THIST TIME. INDEPENDEN IN ROOM. LUNGS COURSE AND WHEEZY. RT AT BEDSIDE T/O NIGHT AND PT REPORTS BREATHING TX's HELP. VSS. BED IN LOWEST POSITION AND CALL LIGHT IN REACH.
[2024-07-08 07:44] VITALS: BP 129/100
[2024-07-08] MEDS ORDERED: Ciprofloxacin 400MG/D5 200ML 200 ML IV SCH (09:56)
[2024-07-08] MEDS ORDERED: Albumin (Human) 25gm/100ml 100 ML IV ONE (10:00)
[2024-07-08] MEDS ORDERED: NS 250 ML IV PRN (10:10)
[2024-07-08 10:44] LABS: Automated BF RBC Count 0.004 M/mm3 (0-0); Automated BF WBC Count 0.224 K/mm3 (0-999); Color, Body Fluid Yellow (None-Yellow)
[2024-07-08 10:45] LABS: Appearance, Body Fluid Hazy (Clear)
[2024-07-08 10:50] LABS: Body Fluid WBC Count 224 /mm3 (0-999); RBC Count, Body Fluid 4000 /mm3 (0-0)
[2024-07-08] MEDS ORDERED: DOCUZEN 8.6-501 EACH PO (12:19)
[2024-07-08] MEDS ORDERED: CIPR250 PO (12:20)
[2024-07-08] MEDS ORDERED: OXYC5 PO (12:20)
[2024-07-08] MEDS ORDERED: MIRALAX17 GM PO (12:20)
[2024-07-08 12:27] LABS: Total Cell Count, Body Fluid 100
--- NOTE | 2024-07-08 14:37 | NUR ---
SHIFT SUMMARY AND DISCHARGE PATIENT ALERT AND INTERACTIVE. PATIENT INDEPENDENT IN THE ROOM. PATIENT HAD PARACENTESIS DONE TODAY AND DRAINED 4.7 LITERS TODAY. ALBUMIN AND ANTIBIOTICS GIVEN AFTER PROCEDURE. PATIENT CONTINUES TO HAVE SORENESS AND PAIN AT UMBILICAL HERNIA. ABDOMINAL BINDER PROVIDED FOR COMFORT AND MEDICATED PER MAR. EDUCATION PROVIDED RELATED TO HERNIAS AND WHAT TO WATCH FOR. DISCHARGE INSTRUCTIONS REVIEWED WITH PATIENT, IV REMOVED. WAITING FOR RIDE.
--- NOTE | 2024-07-08 15:12 | NUR ---
PATIENT TAKEN OUT VIA WHEELCHAIR BY STUDENT. BELONGINGS SENT WITH PATIENT.
== END 2024-07-08 16:50 | disposition home or self-care (01) ==
LOC: ER 07:14 → MEDS 07:15
PROVIDERS: Emergency Medicine; ADMIT Internal Medicine
DX: K70.31 Alcoholic cirrhosis of liver with ascites (principal); Q54.9 Hypospadias, unspecified; K42.9 Umbilical hernia without obstruction or gangrene; I10 Essential (primary) hypertension; J45.909 Unspecified asthma, uncomplicated; Z79.01 Long term (current) use of anticoagulants; Z87.891 Personal history of nicotine dependence
CPT/HCPCS: 49083; 51705; 74177; 80053; 81001; 83605; 85025; 85610; 87070; 87075; 87077; 87086; 87186; 87205; 89051; 94640; 94664; 94760; 96365; 96367; 96374; 96375; 96376; 99285-25; A9270; G0378; J0744; J1171; J1938; J1940; J2405; J3010; J7050; P9047; Q9967

== ENCOUNTER 2024-07-16 15:52 | Inpatient (IN) | payer OTHER ==
[~2024-07-16] VITALS: Ht 172.7 cm; Wt 105.2 kg
[~2024-07-16 15:52] MED LIST changes: +CIPR250 PO; +DOCUZEN 8.6-501 EACH PO; +MIRALAX17 GM PO; +OXYC5 PO
[2024-07-16] MEDS ORDERED: Ondansetron HCl 2 MG / ML 2ML Vial IV ONE ×2 (16:00→17:05)
[2024-07-16] MEDS ORDERED: HYDROmorphone HCl/Pf 1MG SYR IV ONE (16:20)
[2024-07-16] MEDS ORDERED: NS 1,000 ML IV SCH ×3 (16:20→20:25)
[2024-07-16] MEDS ORDERED: NS 1,000 ML IV ONE (16:25)
[2024-07-16 16:29] LABS: BASOPHILS ABSOLUTE AUTO 0.07 K/mm3 (0.00-0.23); BASOPHILS PERCENT AUTO 0 % (0-2); EOSINOPHILS PERCENT AUTO 0 % (0-6); Hematocrit 48.3 % (37.0-53.0); Hemoglobin 15.6 g/dL (13.5-17.5); IMMATURE GRAN ABSOLUTE AUTO 0.59 K/mm3 (0.00-0.10); IMMATURE GRAN PERCENT AUTO 3 % (0-1); LYMPHOCYTES ABSOLUTE AUTO 1.38 K/mm3 (0.84-5.20); LYMPHOCYTES PERCENT AUTO 6 % (21-46); MONOCYTES ABSOLUTE AUTO 0.88 K/mm3 (0.16-1.47); MONOCYTES PERCENT AUTO 4 % (4-13); Mean Corpuscular HGB 28.2 pg (26.0-34.0); Mean Corpuscular HGB Conc 32.3 g/dL (31.5-36.5); Mean Corpuscular Volume 87 fL (80-100); Mean Platelet Volume 10.5 fL (9.1-12.4); NEUTROPHILS ABSOLUTE AUTO 18.57 K/mm3 (1.96-9.15); NEUTROPHILS PERCENT AUTO 87 % (41-73); Platelet Count 441 K/mm3 (150-400); RDW Coefficient Variation 18.6 % (11.7-14.2); RDW Standard Deviation 57.4 fL (35.1-46.3); Red Blood Cell Count 5.54 M/mm3 (4.30-5.90); White Blood Cell Count 21.49 K/mm3 (4.00-11.30)
[2024-07-16] MEDS ORDERED: FentaNYL Citrate 50 MCG/ML 2 ML Injection IV ONE ×2 (16:50→18:55)
[2024-07-16 16:58] LABS: Albumin, Blood 4.1 g/dL (3.4-5.0); Albumin/Globulin Ratio 1.2 (0.8-1.8); Bilirubin, Total 0.9 mg/dL (0.1-1.0); Bun/Creatinine Ratio 20.7 (12.0-20.0); Calcium, Blood 8.9 mg/dL (8.5-10.1); Creatinine, Blood 1.45 mg/dL (0.60-1.20); Globulin, Blood 3.4 g/dL (2.2-4.0); Potassium, Blood 5.8 mmol/L (3.5-5.5); Total Protein, Blood 7.5 g/dL (6.4-8.2)
[2024-07-16 19:06] LABS: Bun/Creatinine Ratio 18.6 (12.0-20.0); Creatinine, Blood 1.56 mg/dL (0.60-1.20); Potassium, Blood 5.6 mmol/L (3.5-5.5)
[2024-07-16 20:00] LABS: Automated BF RBC Count 0.004 M/mm3 (0-0); Automated BF WBC Count 0.214 K/mm3 (0-999)
[2024-07-16 20:09] LABS: Body Fluid WBC Count 214 /mm3 (0-999); RBC Count, Body Fluid 4000 /mm3 (0-0)
[2024-07-16] MEDS ORDERED: OxyCODONE 5 mg/Acetamin 325 mg TABLET PO PRN (20:20)
[2024-07-16 20:25] LABS: Glucose, Body Fluid 191 mg/dL; Lactate Dehydrogenase, Body Fl 121 U/L; Protein, Body Fluid 4.6 g/dL
[2024-07-16] MEDS ORDERED: FentaNYL Citrate 50 MCG/ML 2 ML Injection IV PRN (20:25)
[2024-07-16] MEDS ORDERED: Ondansetron HCl 2 MG / ML 2ML Vial IV PRN (20:25)
[2024-07-16 20:31] LABS: Total Cell Count, Body Fluid 100
[2024-07-16 20:32] LABS: Appearance, Body Fluid Hazy (Clear); Color, Body Fluid Yellow (None-Yellow)
[2024-07-16] MEDS ORDERED: Docusate Sodium/Senna 1 Tab PO SCH (21:00)
[2024-07-16] MEDS ORDERED: Apixaban 5 MG Tab PO SCH (21:00)
[2024-07-16 21:41] VITALS: BP 127/96
[2024-07-16] MEDS ORDERED: Albuterol 2.5 MG/3 ML VIAL INH PRN (22:00)
[2024-07-16 23:05] LABS: Bun/Creatinine Ratio 21.1 (12.0-20.0); Calcium, Blood 8.6 mg/dL (8.5-10.1); Creatinine, Blood 1.66 mg/dL (0.60-1.20); Potassium, Blood 4.9 mmol/L (3.5-5.5)
[2024-07-16 23:58] VITALS: BP 138/95
[2024-07-17 03:51] VITALS: BP 112/89
[2024-07-17 04:25] LABS: Source, Urine Suprapubic Cath
[2024-07-17 04:32] LABS: Bilirubin, Urine Neg (Neg); Blood, Urine 1+ (Neg); Color, Urine Yellow (P-Yellow); Glucose Qualitative, Urine Neg (Neg); Ketones, Urine Neg (Neg); Leukocyte Esterase, Urine 3+ (Neg); Nitrite, Urine Neg (Neg); Protein, Urine 2+ (Neg); Specific Gravity, Urine 1.015 (1.003-1.022); Urobilinogen, Urine NORM (Normal)
[2024-07-17 04:37] LABS: Appearance, Urine Hazy (Clear)
[2024-07-17 04:38] LABS: Bacteria Few /hpf; Red Blood Cells, Urine 0-2 /hpf (0-2); Squamous Epithelial Cells Few /hpf (Few)
[2024-07-17 04:54] LABS: U Amphetamine Screen Not Detected; U Barbituate Screen Not Detected; U Benzodiazapine Screen Not Detected; U Buprenorphine Screen Not Detected; U Cannabinoids Screen DETECTED; U Cocaine Screen Not Detected; U Methadone Screen Not Detected; U Methamphetamine Screen Not Detected; U Opiates Screen Not Detected; U Oxycodone Screen DETECTED; U Phencyclidine Screen Not Detected
--- NOTE | 2024-07-17 05:59 | NUR ---
PT ADMITTED TO ROOM 351 AT 2140. PT MEDICATED FOR PAIN AND NAUSEA PER EMAR. C/O ABDOMINAL PAIN AROUND UMBILICAL HERNIA SITE. PT WITH DRY HEAVES UPON ARRIVAL TO UNIT, BUT NO EMESIS. SUPRAPUBIC RUIZ DRAINING JOHN COLORED URINE WITH SOME SEDIMENT. BANDAID INTACT TO PARACENTESIS SITE. PT UP INDEPENTLY WITH SBA DUE TO LINES, CORDS. SLEPT INTERMITTENTLY DURING THE NIGHT. BED IN LOWEST POSITION, CALL LIGHT WITHIN REACH, SIDERAILS UP X2.
[2024-07-17 06:13] LABS: BASOPHILS ABSOLUTE AUTO 0.03 K/mm3 (0.00-0.23); BASOPHILS PERCENT AUTO 0 % (0-2); EOSINOPHILS PERCENT AUTO 0 % (0-6); Hematocrit 44.5 % (37.0-53.0); Hemoglobin 14.3 g/dL (13.5-17.5); IMMATURE GRAN ABSOLUTE AUTO 0.13 K/mm3 (0.00-0.10); IMMATURE GRAN PERCENT AUTO 1 % (0-1); LYMPHOCYTES PERCENT AUTO 10 % (21-46); MONOCYTES ABSOLUTE AUTO 1.47 K/mm3 (0.16-1.47); MONOCYTES PERCENT AUTO 10 % (4-13); Mean Corpuscular HGB Conc 32.1 g/dL (31.5-36.5); Mean Corpuscular Volume 87 fL (80-100); Mean Platelet Volume 10.1 fL (9.1-12.4); NEUTROPHILS ABSOLUTE AUTO 12.03 K/mm3 (1.96-9.15); NEUTROPHILS PERCENT AUTO 79 % (41-73); Platelet Count 254 K/mm3 (150-400); RDW Coefficient Variation 17.8 % (11.7-14.2); RDW Standard Deviation 56.5 fL (35.1-46.3); White Blood Cell Count 15.16 K/mm3 (4.00-11.30)
[2024-07-17 06:42] LABS: Albumin, Blood 3.5 g/dL (3.4-5.0); Albumin/Globulin Ratio 1.2 (0.8-1.8); Bilirubin, Total 0.8 mg/dL (0.1-1.0); Bun/Creatinine Ratio 19.7 (12.0-20.0); Calcium, Blood 8.5 mg/dL (8.5-10.1); Creatinine, Blood 1.57 mg/dL (0.60-1.20); Potassium, Blood 4.6 mmol/L (3.5-5.5); Total Protein, Blood 6.5 g/dL (6.4-8.2)
[2024-07-17 07:36] VITALS: BP 116/81
[2024-07-17] MEDS ORDERED: Polyethylene Glycol 3350 17 gm PO PRN (08:00)
[2024-07-17] MEDS ORDERED: NS 500 ML IV SCH (08:00)
[2024-07-17] MEDS ORDERED: CefTRIAXone Sodium 2,000 MG in NS 100 ML IV SCH (09:00)
[2024-07-17 15:35] VITALS: BP 144/88
--- NOTE | 2024-07-17 18:03 | NUR ---
PT A&OX4, VSS, RA, ON TELE, STARTED WITH AFIB IN 60S, THEN BIGEMINY PVCS THIS AFTERNOON, A 9 BEAT RUN OF VTACH, AND AFIB RVR THIS EVENING, PT ASYMPTOMATIC, AWARE, NO NEW ORDERS. PT SBA IN ROOM D/T LINES, NORMALLY INDEPENDENT. STATES DIARRHEA, NAUSEA, NO VOMITING, ABD PAIN IMPROVING. FENTANYL GIVEN X1 FOR PAIN THIS MORNING, ZOFRAN GIVEN X1 FOR NAUSEA. PT CALLS APPROPRATLY, COOPERATIVE WITH CARE.
[2024-07-17 19:54] VITALS: BP 142/90
[2024-07-17] MEDS ORDERED: Metoprolol Tartrate 1 MG/ML 5 ML VIAL IV ONE (22:55)
[2024-07-17] MEDS ORDERED: dilTIAZem HCL 90 MG CAP.ER.12H PO SCH (23:00)
[2024-07-17] MEDS ORDERED: Diltiazem HCl 180 MG Cap.CD PO SCH (23:37)
[2024-07-17 23:45] VITALS: BP 126/90
[2024-07-17 23:56] VITALS: BP 144/99
[2024-07-18] VITALS (7 sets, daily range): BP systolic 131–151; BP diastolic 80–105
[2024-07-18 05:44] LABS: BASOPHILS ABSOLUTE AUTO 0.02 K/mm3 (0.00-0.23); BASOPHILS PERCENT AUTO 0 % (0-2); EOSINOPHILS ABSOLUTE AUTO 0.16 K/mm3 (0.00-0.68); EOSINOPHILS PERCENT AUTO 2 % (0-6); IMMATURE GRAN ABSOLUTE AUTO 0.11 K/mm3 (0.00-0.10); IMMATURE GRAN PERCENT AUTO 2 % (0-1); LYMPHOCYTES ABSOLUTE AUTO 1.49 K/mm3 (0.84-5.20); LYMPHOCYTES PERCENT AUTO 20 % (21-46); MONOCYTES ABSOLUTE AUTO 0.66 K/mm3 (0.16-1.47); MONOCYTES PERCENT AUTO 9 % (4-13); Mean Corpuscular HGB 27.7 pg (26.0-34.0); Mean Corpuscular HGB Conc 32.5 g/dL (31.5-36.5); Mean Corpuscular Volume 85 fL (80-100); Mean Platelet Volume 9.8 fL (9.1-12.4); NEUTROPHILS ABSOLUTE AUTO 4.95 K/mm3 (1.96-9.15); NEUTROPHILS PERCENT AUTO 67 % (41-73); Platelet Count 185 K/mm3 (150-400); RDW Coefficient Variation 17.8 % (11.7-14.2); RDW Standard Deviation 55.8 fL (35.1-46.3); Red Blood Cell Count 4.69 M/mm3 (4.30-5.90); White Blood Cell Count 7.39 K/mm3 (4.00-11.30)
--- NOTE | 2024-07-18 05:57 | NUR ---
SHIFT SUMMARY PT SLEPT INTERMITTENTLY DURING THE NIGHT. MEDICATED FOR ABDOMINAL PAIN X1 WITH PERCOCET PER EMAR. PT STATED VAGUE NAUSEA AND NO APPETITE AT START OF SHIFT- DENIED THE NEED FOR ANTIEMETICS- BUT ATE A SANDWICH DURING THE NIGHT. PER TELE HEART RATE UP TO THE 130'S- ORDER RECEIVED AND GIVEN FOR 1 X DOSE OF IV METOPROLOL AND DAILY PO DILTIAZEM ER. PT UNSURE OF MEDICATIONS- NEED TO GET A LIST OF MEDS FROM PT'S PHARMACY, [facility]. BAG CHANGED TO PT'S SUPRAPUBIC CATHETER DUE TO LEAKING. PT UP INDEPENDENTLY TO BATHROOM. LOOSE STOOL CONTINUES. BED IN LOWEST POSITION CALL LIGHT WITHIN REACH, SIDERAILS UP X2.
[2024-07-18 06:16] LABS: Albumin, Blood 3.1 g/dL (3.4-5.0); Bilirubin, Total 0.5 mg/dL (0.1-1.0); Bun/Creatinine Ratio 18.2 (12.0-20.0); Calcium, Blood 8.4 mg/dL (8.5-10.1); Creatinine, Blood 1.43 mg/dL (0.60-1.20); Globulin, Blood 3.2 g/dL (2.2-4.0); Magnesium, Blood 2.1 mg/dL (1.6-2.4); Total Protein, Blood 6.3 g/dL (6.4-8.2)
--- NOTE | 2024-07-18 18:46 | NUR ---
PT A&OX4, VSS, RA, AFIB IN 80S ON TELE, IND IN ROOM. PT WOULD LIKE TO DISCHARGE HOME AMARI, THIS RN EXPLAINED THAT WE WERE WAITING FOR URINE CULTURE RESULTS PRIOR TO DC. PT PAIN MANAGED WITH PRN PERCOCET, AND NAUSEA MANAGED WITH ZOFRAN. CALLS APPROPRIATLY, CALL LIGHT IN REACH.
[2024-07-19 04:35] VITALS: BP 136/95
--- NOTE | 2024-07-19 05:52 | NUR ---
SHIFT SUMMARY PT MEDICATED FOR ABDOMINAL PAIN X1 PER EMAR. DENIES NAUSEA OR BM'S THIS SHIFT. PT WITH GOOD APPETITE, EATING MANY SNACKS THROUGH THE SHIFT. SP CATH DRAINING LARGE AMOUNTS OF YELLOW URINE. PT UP INDEPENDENTLY IN ROOM. BED IN LOWEST POSITION, CALL LIGHT WITHIN REACH, SIDERAILS UP X2.
[2024-07-19 06:06] LABS: Hematocrit 40.7 % (37.0-53.0); Hemoglobin 13.1 g/dL (13.5-17.5); Mean Corpuscular HGB 27.8 pg (26.0-34.0); Mean Corpuscular HGB Conc 32.2 g/dL (31.5-36.5); Mean Corpuscular Volume 86 fL (80-100); Mean Platelet Volume 9.5 fL (9.1-12.4); Platelet Count 220 K/mm3 (150-400); RDW Coefficient Variation 17.3 % (11.7-14.2); RDW Standard Deviation 54.8 fL (35.1-46.3); Red Blood Cell Count 4.72 M/mm3 (4.30-5.90); White Blood Cell Count 9.92 K/mm3 (4.00-11.30)
[2024-07-19 06:37] LABS: Bun/Creatinine Ratio 18.8 (12.0-20.0); Calcium, Blood 8.2 mg/dL (8.5-10.1); Creatinine, Blood 1.28 mg/dL (0.60-1.20); Magnesium, Blood 1.7 mg/dL (1.6-2.4); Phosphorus, Blood 3.5 mg/dL (2.5-4.9); Potassium, Blood 4.2 mmol/L (3.5-5.5)
[2024-07-19 07:19] VITALS: BP 143/93
[2024-07-19] MEDS ORDERED: ALBU90OI INH (11:19)
[2024-07-19] MEDS ORDERED: LOSA50 PO (11:20)
[2024-07-19] MEDS ORDERED: DILT180 PO (11:20)
[2024-07-19] MEDS ORDERED: FAMO20 PO (11:20)
[2024-07-19] MEDS ORDERED: FURO40 PO (11:21)
[2024-07-19] MEDS ORDERED: BACL10 PO (11:22)
[2024-07-19] MEDS ORDERED: ONDA4ODT MM (11:22)
[2024-07-19] MEDS ORDERED: SPIR25 PO (11:23)
[2024-07-19] MEDS ORDERED: BUDESONIDE-FO10.2 G2 INH (11:24)
--- NOTE | 2024-07-19 11:38 | NUR ---
RECEIVED UPDATED RX FROM [facility]. UPDATED MED REC. CALLED DR CASTILLO. ADVISED MEDS IN. ALSO IF NEEDS OXYCODONE, PT STATES HAS NONE AND WILL NEED HARD SCRIPT.
[2024-07-19] MEDS ORDERED: Albuterol HFA200 ACT/6.7 GM INH INH PRN (11:40)
[2024-07-19] MEDS ORDERED: Mometasone/Formoterol MDI 200/5 mcg 13 GM INH SCH (11:55)
[2024-07-19 13:27] VITALS: BP 127/87
[2024-07-19 16:08] VITALS: BP 134/83
--- NOTE | 2024-07-19 17:41 | NUR ---
PT PLEASANT TODAY. STATES WANTS TO GO HOME. PENDING LAB RESULTS. CONTINUES TO HAVE ABD PAIN. MANAGED TO PT SATISFACTION WITH AVAILABLE MEDICATIONS. NO OTHER NEW CONCERNS NOTED. CONTINUES TO BE AMBULATORY ABOUT ROOM. BED IN LOW POSITION, CALL LITE IN REACH. CALLS APPROP
[2024-07-19] MEDS ORDERED: Spironolactone 25 MG Tab PO SCH (18:00)
[2024-07-19 19:56] VITALS: BP 124/89
[2024-07-19] MEDS ORDERED: Sennosides 8.6 MG Tab PO SCH (21:00)
[2024-07-19] MEDS ORDERED: Baclofen 10 MG Tab PO SCH (21:00)
[2024-07-19 23:55] VITALS: BP 140/58
--- NOTE | 2024-07-20 03:12 | NUR ---
SHIFT SUMMARY PATIENT HAS BEEN SLEEPING INTERMITTANTLY THROUGHOUT THE NIGHT. HE HAS BEEN MEDICATED FOR PAIN X1 ON THIS SHIFT. SUPRAPUBIC CATHETER IS PATENT AND DRAINING ADEQUATE AMOUNTS OF URINE. PATIENT IS ORIENTED X4. HE HAS HIS CALL LIGHT WITHIN REACH. SAFETY PRECAUTIONS ARE BEING MAINTAINED.
[2024-07-20 03:43] VITALS: BP 135/90
[2024-07-20 06:23] LABS: Hematocrit 39.2 % (37.0-53.0); Hemoglobin 12.5 g/dL (13.5-17.5)
[2024-07-20 06:48] LABS: Bun/Creatinine Ratio 20.4 (12.0-20.0); Calcium, Blood 8.4 mg/dL (8.5-10.1); Creatinine, Blood 1.13 mg/dL (0.60-1.20); Potassium, Blood 4.6 mmol/L (3.5-5.5)
[2024-07-20 07:27] VITALS: BP 139/94
[2024-07-20] MEDS ORDERED: Doxycycline Hyclate 100 MG TAB PO SCH (09:00)
[2024-07-20] MEDS ORDERED: Furosemide 40 MG Tab PO SCH (09:00)
[2024-07-20] MEDS ORDERED: Losartan Potassium 50 MG Tab PO SCH (09:00)
[2024-07-20] MEDS ORDERED: Diflucan100 MG PO (09:28)
[2024-07-20] MEDS ORDERED: DOXY100 PO (10:49)
[2024-07-20] MEDS ORDERED: ELIQUIS5 M2 PO (10:49)
[2024-07-20] MEDS ORDERED: FLUCONAZOLE PO (10:55)
--- NOTE | 2024-07-20 11:13 | NUR ---
pivs removed. pt is being discharged under md instructions. pt had d/c paper work and scripts faxed to pt's preffered pharmacy
== END 2024-07-20 12:15 | disposition home or self-care (01) | DRG 394 ==
LOC: ER 15:52 → MEDS 20:22 → ERHOLD 20:22 → ER 21:15 → MEDS 21:42
PROVIDERS: Hospitalist; Nurse Practitioner Acute Care; Student in an Organized Health Care Education/Training Program; ADMIT Internal Medicine
PROC: 0W9G3ZZ Drainage of Peritoneal Cavity, Percutaneous Approach (ICD-10-PCS; principal; 2024-07-16)
DX: K42.9 Umbilical hernia without obstruction or gangrene (principal); E87.1 Hypo-osmolality and hyponatremia; N17.9 Acute kidney failure, unspecified; R18.8 Other ascites; I48.92 Unspecified atrial flutter; N39.0 Urinary tract infection, site not specified; K40.20 Bilateral inguinal hernia, without obstruction or gangrene, not specified as recurrent; E11.9 Type 2 diabetes mellitus without complications; K74.60 Unspecified cirrhosis of liver; E87.5 Hyperkalemia; I10 Essential (primary) hypertension; J45.20 Mild intermittent asthma, uncomplicated; Z96.0 Presence of urogenital implants; F12.90 Cannabis use, unspecified, uncomplicated; F15.90 Other stimulant use, unspecified, uncomplicated; D72.829 Elevated white blood cell count, unspecified; K76.89 Other specified diseases of liver; I45.10 Unspecified right bundle-branch block; B95.61 Methicillin susceptible Staphylococcus aureus infection as the cause of diseases classified elsewhere; Z79.891 Long term (current) use of opiate analgesic; Z88.8 Allergy status to other drugs, medicaments and biological substances; Z79.2 Long term (current) use of antibiotics; Z79.899 Other long term (current) drug therapy; Z86.711 Personal history of pulmonary embolism; Z79.01 Long term (current) use of anticoagulants; Q54.9 Hypospadias, unspecified; Z87.19 Personal history of other diseases of the digestive system; Z98.890 Other specified postprocedural states
CPT/HCPCS: 36415; 74177; 80048; 80053; 81001; 82945; 83605; 83615; 83690; 83735; 84100; 84157; 85014; 85018; 85025; 85027; 86850; 86900; 86901; 87070; 87075; 87086; 87106; 87205; 89051; 93005; 93010; 94640; 94664; 94760; 96361-59; 96374-59; 96375-59; 96376-59; 99285-25; A9270; G0378; J0696; J1171; J2405; J3010; J7030; J7040; Q9967

== ENCOUNTER 2024-08-14 13:01 | Emergency (ER) | payer OTHER ==
[~2024-08-14] VITALS: Ht 182.9 cm; Wt 104.3 kg
[~2024-08-14 13:01] MED LIST changes: +BACL10 PO; +BUDESONIDE-FO10.2 G2 INH; +DILT180 PO; +DOXY100 PO; +Diflucan100 MG PO; +ELIQUIS5 M2 PO; +FLUCONAZOLE PO; +FURO40 PO; +LOSA50 PO; +ONDA4ODT MM
[2024-08-14] MEDS ORDERED: Lactated Ringer's 1,000 ML IV ONE (14:10)
[2024-08-14] MEDS ORDERED: Diltiazem HCl 5 MG / ML 5ML Vial IV ONE (14:15)
[2024-08-14 14:43] LABS: BASOPHILS ABSOLUTE AUTO 0.04 K/mm3 (0.00-0.23); BASOPHILS PERCENT AUTO 1 % (0-2); EOSINOPHILS ABSOLUTE AUTO 0.34 K/mm3 (0.00-0.68); EOSINOPHILS PERCENT AUTO 4 % (0-6); Hematocrit 42.1 % (37.0-53.0); IMMATURE GRAN ABSOLUTE AUTO 0.03 K/mm3 (0.00-0.10); IMMATURE GRAN PERCENT AUTO 0 % (0-1); LYMPHOCYTES ABSOLUTE AUTO 1.12 K/mm3 (0.84-5.20); LYMPHOCYTES PERCENT AUTO 14 % (21-46); MONOCYTES ABSOLUTE AUTO 0.76 K/mm3 (0.16-1.47); MONOCYTES PERCENT AUTO 10 % (4-13); Mean Corpuscular HGB 28.3 pg (26.0-34.0); Mean Corpuscular HGB Conc 33.3 g/dL (31.5-36.5); Mean Corpuscular Volume 85 fL (80-100); Mean Platelet Volume 11.1 fL (9.1-12.4); NEUTROPHILS ABSOLUTE AUTO 5.69 K/mm3 (1.96-9.15); NEUTROPHILS PERCENT AUTO 71 % (41-73); Platelet Count 157 K/mm3 (150-400); RDW Coefficient Variation 18.2 % (11.7-14.2); RDW Standard Deviation 55.7 fL (35.1-46.3); Red Blood Cell Count 4.95 M/mm3 (4.30-5.90); White Blood Cell Count 7.98 K/mm3 (4.00-11.30)
[2024-08-14 15:02] LABS: Albumin, Blood 3.8 g/dL (3.4-5.0); Albumin/Globulin Ratio 1.1 (0.8-1.8); Bilirubin, Total 2.1 mg/dL (0.1-1.0); Bun/Creatinine Ratio 11.8 (12.0-20.0); Calcium, Blood 9.1 mg/dL (8.5-10.1); Creatinine, Blood 0.85 mg/dL (0.60-1.20); Globulin, Blood 3.4 g/dL (2.2-4.0); Potassium, Blood 4.2 mmol/L (3.5-5.5); Total Protein, Blood 7.2 g/dL (6.4-8.2)
[2024-08-14 15:06] LABS: International Normalized Ratio 1.3; Prothrombin Time Results 13.6 Sec (9.7-11.5)
[2024-08-14 16:00] VITALS: BP 121/80
[2024-08-14] MEDS ORDERED: PROM25 PO (16:04)
== END 2024-08-14 16:43 | disposition home or self-care (01) ==
LOC: ER 13:01
PROVIDERS: Emergency Medicine
DX: I48.92 Unspecified atrial flutter (principal); E86.0 Dehydration; J45.909 Unspecified asthma, uncomplicated; Z79.899 Other long term (current) drug therapy; Z79.51 Long term (current) use of inhaled steroids
CPT/HCPCS: 71046; 76705; 80053; 83880; 84484; 85025; 85610; 85730; 93005; 93010; 96374; 99285-25; J7120

== ENCOUNTER 2024-09-02 08:24 | Inpatient (IN) | payer OTHER ==
[~2024-09-02] VITALS: Ht 182.9 cm; Wt 117.4 kg
[2024-09-02 10:32] LABS: BASOPHILS ABSOLUTE AUTO 0.11 K/mm3 (0.00-0.23); BASOPHILS PERCENT AUTO 1 % (0-2); EOSINOPHILS ABSOLUTE AUTO 0.32 K/mm3 (0.00-0.68); EOSINOPHILS PERCENT AUTO 2 % (0-6); Hematocrit 45.3 % (37.0-53.0); Hemoglobin 14.5 g/dL (13.5-17.5); IMMATURE GRAN PERCENT AUTO 1 % (0-1); LYMPHOCYTES ABSOLUTE AUTO 1.76 K/mm3 (0.84-5.20); LYMPHOCYTES PERCENT AUTO 11 % (21-46); MONOCYTES ABSOLUTE AUTO 1.09 K/mm3 (0.16-1.47); MONOCYTES PERCENT AUTO 7 % (4-13); Mean Corpuscular HGB 28.3 pg (26.0-34.0); Mean Corpuscular Volume 88 fL (80-100); Mean Platelet Volume 10.2 fL (9.1-12.4); NEUTROPHILS ABSOLUTE AUTO 11.98 K/mm3 (1.96-9.15); NEUTROPHILS PERCENT AUTO 77 % (41-73); Platelet Count 267 K/mm3 (150-400); RDW Coefficient Variation 18.6 % (11.7-14.2); RDW Standard Deviation 58.6 fL (35.1-46.3); Red Blood Cell Count 5.13 M/mm3 (4.30-5.90); White Blood Cell Count 15.46 K/mm3 (4.00-11.30)
[2024-09-02] MEDS ORDERED: Ondansetron HCl 2 MG / ML 2ML Vial IV ONE (10:35)
[2024-09-02] MEDS ORDERED: FentaNYL Citrate 50 MCG/ML 2 ML Injection IV ONE (10:35)
[2024-09-02 10:48] LABS: International Normalized Ratio 1.57; Prothrombin Time Results 16.7 Sec (9.7-11.5)
[2024-09-02] MEDS ORDERED: DILTIAZEM 24HR300 MG PO (10:59)
[2024-09-02] MEDS ORDERED: ENULOSE10 GM/156 PO (10:59)
[2024-09-02 11:04] LABS: Albumin, Blood 3.7 g/dL (3.4-5.0); Albumin/Globulin Ratio 1.2 (0.8-1.8); Bilirubin, Total 1.3 mg/dL (0.1-1.0); Bun/Creatinine Ratio 10.7 (12.0-20.0); Calcium, Blood 8.9 mg/dL (8.5-10.1); Creatinine, Blood 1.59 mg/dL (0.60-1.20); Globulin, Blood 3.1 g/dL (2.2-4.0); Potassium, Blood 4.2 mmol/L (3.5-5.5); Total Protein, Blood 6.8 g/dL (6.4-8.2)
[2024-09-02] MEDS ORDERED: Furosemide 10 MG/ML 4ML Vial IV ONE (11:15)
[2024-09-02 13:05] LABS: Source, Urine Suprapubic Cath
[2024-09-02 13:11] LABS: Appearance, Urine Hazy (Clear); Bilirubin, Urine Neg (Neg); Blood, Urine 5+ (Neg); Glucose Qualitative, Urine Neg (Neg); Ketones, Urine Neg (Neg); Leukocyte Esterase, Urine 2+ (Neg); Nitrite, Urine Neg (Neg); Protein, Urine Neg (Neg); Specific Gravity, Urine 1.005 (1.003-1.022); Urobilinogen, Urine NORM (Normal)
[2024-09-02 13:30] VITALS: BP 124/94
[2024-09-02 13:31] LABS: Color, Urine Pale Yellow (P-Yellow)
[2024-09-02 13:40] LABS: Calcium Oxalate Crystals Rare /hpf; Red Blood Cells, Urine 50-100 /hpf (0-2); Squamous Epithelial Cells Rare /hpf (Few)
[2024-09-02 13:41] LABS: Bacteria Not Seen /hpf; White Blood Cells, Urine 0-2 /hpf (0-5)
[2024-09-02] MEDS ORDERED: CefTRIAXone Sodium 1,000 MG in NS 100 ML IV SCH (14:00)
[2024-09-02] MEDS ORDERED: OxyCODONE HCL 5 MG TAB PO ONE (15:00)
[2024-09-02 15:24] VITALS: BP 116/83
[2024-09-02] MEDS ORDERED: Ipratropium/Albuterol SulF 2.5-0.5MG/3 ML Amp INH SCH (17:35)
[2024-09-02] MEDS ORDERED: Furosemide 10 MG / ML 2ML Vial IV SCH (18:00)
[2024-09-02] MEDS ORDERED: Furosemide 10 MG/ML 4ML Vial IV SCH (18:00)
--- NOTE | 2024-09-02 18:30 | NUR ---
ADMISSION NOTE/SHIFT SUMMARY PATIENT A/OX4, ABLE TO MAKE NEEDS KNOWN. PLEASANT AND COOPERATIVE WITH CARE. ADMISSION ASSESSMENT COMPLETED, MED REC NOT COMPLETED. AWAITING PATIENT'S FAMILY TO BRING MEDICATION LIST. PATIENT CAME TO HOSPITAL WITH HOME INHALER, MEDICATION LOCKED IN DRAWER. SKIN ASSESSMENT COMPLETED AND SCATTERED EXCORIATIONS AND SCABS T/O, RED MOIST RASH TO GROIN. PATIENT WITH ABDOMINAL ULTRASOUND COMPLETED THIS SHIFT. ECHOCARDIOGRAM ORDERED, NOT COMPLETED THIS SHIFT. SUPRAPUBIC CATHETER IN PLACE, CATHETER BAG REPLACED IN EMERGENCY ROOM. PATIENT STATES CATHETER WAS CHANGED 1 WEEK AGO BY HIS UROLOGIST IN [place]. PATIENT WITH INGUINAL AND UMBICLICAL HERNIA. SCROTAL SWELLING. TELEMETRY IN [facility], [place] IN 50s. PATIENT COMPLAINING OF ABDOMINAL PAIN AND RIGHT LEG PAIN, MEDICATED PER MAY. NOOTHER CONCERNS AT THIS TIME.
[2024-09-02] MEDS ORDERED: OxyCODONE HCL 5 MG TAB PO PRN (18:40)
[2024-09-02 20:15] VITALS: BP 137/79
[2024-09-02] MEDS ORDERED: Miconazole Nitrate 2% 85 GM PWD TOP SCH (21:00)
[2024-09-02] MEDS ORDERED: Apixaban 5 MG Tab PO SCH (21:00)
[2024-09-02] MEDS ORDERED: Lactobacil 2-S.Thermo-Bifido 1 1 Cap PO SCH (21:00)
[2024-09-03] VITALS (7 sets, daily range): BP systolic 126–142; BP diastolic 73–104
--- NOTE | 2024-09-03 03:24 | NUR ---
SHIFT SUMMARY ADMITTED FOR SOB/CIRRHOSIS. FULL CODE. PLAN IS FOR DIURESIS, ANTIB RX, FLUID RESTRICTION. SUPRAPUBIC CATHETER IN PLACE. TELEMETRY: NSR @ 78 BPM W/BBB AND AV HB. HE IS ON ELIQUIS, I DID HOLD IT TONIGHT IN ANTICIPATION FOR A POSSIBLE PARACENTESIS. STANDBY ASSIST W/FWW - BRP. PAIN MEDICATION GIVEN THIS SHIFT. 2 GRAM LOW NA+ DIET. STRICT I&O'S.
[2024-09-03 06:06] LABS: BASOPHILS ABSOLUTE AUTO 0.04 K/mm3 (0.00-0.23); BASOPHILS PERCENT AUTO 0 % (0-2); EOSINOPHILS ABSOLUTE AUTO 0.36 K/mm3 (0.00-0.68); EOSINOPHILS PERCENT AUTO 3 % (0-6); Hematocrit 36.5 % (37.0-53.0); Hemoglobin 11.7 g/dL (13.5-17.5); IMMATURE GRAN ABSOLUTE AUTO 0.09 K/mm3 (0.00-0.10); IMMATURE GRAN PERCENT AUTO 1 % (0-1); LYMPHOCYTES ABSOLUTE AUTO 1.44 K/mm3 (0.84-5.20); LYMPHOCYTES PERCENT AUTO 13 % (21-46); MONOCYTES ABSOLUTE AUTO 0.93 K/mm3 (0.16-1.47); MONOCYTES PERCENT AUTO 8 % (4-13); Mean Corpuscular HGB 28.1 pg (26.0-34.0); Mean Corpuscular HGB Conc 32.1 g/dL (31.5-36.5); Mean Corpuscular Volume 88 fL (80-100); Mean Platelet Volume 10.4 fL (9.1-12.4); NEUTROPHILS ABSOLUTE AUTO 8.41 K/mm3 (1.96-9.15); NEUTROPHILS PERCENT AUTO 75 % (41-73); Platelet Count 193 K/mm3 (150-400); RDW Coefficient Variation 18.4 % (11.7-14.2); RDW Standard Deviation 57.3 fL (35.1-46.3); Red Blood Cell Count 4.17 M/mm3 (4.30-5.90); White Blood Cell Count 11.27 K/mm3 (4.00-11.30)
[2024-09-03 06:30] LABS: Albumin, Blood 3.2 g/dL (3.4-5.0); Bilirubin, Total 0.7 mg/dL (0.1-1.0); Bun/Creatinine Ratio 9.1 (12.0-20.0); Calcium, Blood 8.3 mg/dL (8.5-10.1); Creatinine, Blood 1.64 mg/dL (0.60-1.20); Globulin, Blood 3.1 g/dL (2.2-4.0); Potassium, Blood 3.4 mmol/L (3.5-5.5); Total Protein, Blood 6.3 g/dL (6.4-8.2)
[2024-09-03] MEDS ORDERED: Potassium Chloride 20 MEQ TabCR PO ONE (08:00)
[2024-09-03] MEDS ORDERED: Albuterol HFA200 ACT/6.7 GM INH INH PRN (08:30)
[2024-09-03] MEDS ORDERED: Furosemide 10 MG/ML 4ML Vial IV SCH (09:00)
[2024-09-03] MEDS ORDERED: Lactulose 20 GM/30 ML UDC PO SCH (09:00)
[2024-09-03] MEDS ORDERED: Metoprolol Tartrate 25 MG Tab PO SCH (13:00)
[2024-09-03] MEDS ORDERED: Empagliflozin 10 MG TAB PO SCH (13:00)
--- NOTE | 2024-09-03 18:43 | NUR ---
PT A&OX4, VSS, RA, SR WITH BBB ON TELE. SOB IMPROVING, DIURESING WELL. PER MD OK TO GIVE ELOQUIS SINCE SOB IS IMPROVING WITH DIURETICS AND FLUID RESTRICTION. PT C/O LLE PAIN 10, PRN OXYCODONE GIVEN X 2 WITH GOOD EFFECT. PT COOPERATED WITH ALL CARES. CALL LIGHT IN REACH.
[2024-09-03] MEDS ORDERED: CefTRIAXone Sodium 1,000 MG in NS 100 ML IV SCH (21:00)
[2024-09-03] MEDS ORDERED: NS 250 ML IV PRN (23:25)
[2024-09-04 03:19] VITALS: BP 141/97
--- NOTE | 2024-09-04 03:43 | NUR ---
SHIFT SUMMARY NO ACUTE EVENTS DURING THIS SHIFT. STRICT I&O'S, FLUID RESTRICTION 1500MLS. PT REQUESTING MORE FLUIDS D/T THIRST. CONTINUING PT EDUCATION. LUNG SOUNDS CRACKLES ON RIGHT LOBES, DIMINISHED ON LEFT LOBES. OCCASIONAL COUGH. SUPRAPUBIC CATHETER DRAINING YELLOW COLOR URINE. PT C/O 11/07 BILATERAL LE PAIN, MEDICATED WITH PRN 5MG PRN OXYCODONE. TELE: SR@85, PT DENIES CP/PRESSURE AND SOB. BED AT THE LOWEST POSITION, CALL LIGHT WITHIN REACH. PT IS ABLE TO MAKE HIS NEEDS KNOWN.
[2024-09-04 05:35] LABS: BASOPHILS ABSOLUTE AUTO 0.05 K/mm3 (0.00-0.23); BASOPHILS PERCENT AUTO 1 % (0-2); EOSINOPHILS PERCENT AUTO 5 % (0-6); Hematocrit 36.6 % (37.0-53.0); Hemoglobin 11.6 g/dL (13.5-17.5); IMMATURE GRAN ABSOLUTE AUTO 0.08 K/mm3 (0.00-0.10); IMMATURE GRAN PERCENT AUTO 1 % (0-1); LYMPHOCYTES ABSOLUTE AUTO 1.42 K/mm3 (0.84-5.20); LYMPHOCYTES PERCENT AUTO 16 % (21-46); MONOCYTES ABSOLUTE AUTO 0.86 K/mm3 (0.16-1.47); MONOCYTES PERCENT AUTO 10 % (4-13); Mean Corpuscular HGB Conc 31.7 g/dL (31.5-36.5); Mean Corpuscular Volume 88 fL (80-100); Mean Platelet Volume 10.7 fL (9.1-12.4); NEUTROPHILS PERCENT AUTO 68 % (41-73); Platelet Count 161 K/mm3 (150-400); RDW Coefficient Variation 17.8 % (11.7-14.2); RDW Standard Deviation 55.8 fL (35.1-46.3); Red Blood Cell Count 4.14 M/mm3 (4.30-5.90); White Blood Cell Count 8.81 K/mm3 (4.00-11.30)
[2024-09-04 05:58] LABS: Albumin, Blood 3.5 g/dL (3.4-5.0); Albumin/Globulin Ratio 1.1 (0.8-1.8); Bilirubin, Total 0.8 mg/dL (0.1-1.0); Bun/Creatinine Ratio 11.1 (12.0-20.0); Calcium, Blood 8.9 mg/dL (8.5-10.1); Creatinine, Blood 1.62 mg/dL (0.60-1.20); Globulin, Blood 3.2 g/dL (2.2-4.0); Potassium, Blood 3.8 mmol/L (3.5-5.5); Total Protein, Blood 6.7 g/dL (6.4-8.2)
[2024-09-04 07:23] VITALS: BP 150/88
[2024-09-04] MEDS ORDERED: METO25 PO (14:28)
[2024-09-04] MEDS ORDERED: JARDIANCE10 MG PO (14:28)
--- NOTE | 2024-09-04 14:29 | NUR ---
THIS NURSE WAS WORKING ON DISCHARGE. MED REC DID NOT HAVE MANY OF PATIENTS HOME MEDS LISTED. THIS NURSE CALLED DR NAGEL WHO WAS NOT AWARE THAT THE PATIENT WAS TAKING THESE MEDICATIONS AT HOME AND THAT PT NEEDS TO HAVE HIS PCP DECIDE IF HE IS TO DC OR CONTINUE TAKING THE MEDS THAT ARE NOT ON MED REC. . THIS NURSE LOOKED AT PT'S MED REC AND IT WAS NOT COMPLETED AT TIME OF ADMISSION RELATED TO PT NOT KNOWING HIS HOME MEDICATIONS BECAUSE HIS BOTTLES WERE AT HOME. THIS NURSE UNABLE TO COMPLETE MED REC WITH PATIENT. THIS NURSE ALSO TRIED TO CALL PT'S HOME PHARMACY BUT IT WAS CLOSED. PT INSTRUCTED BY THIS NURSE TO CONTACT PCP SOON POSSIBLE TO CLARIFY IF HE SHOULD CONTINUE HIS OTHER MEDICATIONS AT HOME, PT AGREES.
--- NOTE | 2024-09-04 15:06 | NUR ---
DISCHARGE PT DISCHARGED HOME WITH FAMILY. CHARGER OPERATOR BROUGHT PT OUT WITH WHEELCHAIR. ALL BELONGING WITH PT, EDUCATION PROVIDED, ALL QUESTIONS ANSWERED.
== END 2024-09-04 15:16 | disposition home or self-care (01) | DRG 291 ==
LOC: ER 08:24 → MEDS 08:25 → ER 13:19 → MEDS 09-03 15:20
PROVIDERS: Emergency Medicine; Family Medicine Adult Medicine; Registered Nurse; ADMIT Internal Medicine
DX: I11.0 Hypertensive heart disease with heart failure (principal); I50.23 Acute on chronic systolic (congestive) heart failure; R18.8 Other ascites; N17.9 Acute kidney failure, unspecified; R33.9 Retention of urine, unspecified; K74.69 Other cirrhosis of liver; I48.0 Paroxysmal atrial fibrillation; K42.9 Umbilical hernia without obstruction or gangrene; E11.9 Type 2 diabetes mellitus without complications; J45.20 Mild intermittent asthma, uncomplicated; R06.03 Acute respiratory distress; Z93.50 Unspecified cystostomy status; Z88.8 Allergy status to other drugs, medicaments and biological substances; Z79.51 Long term (current) use of inhaled steroids; Z79.01 Long term (current) use of anticoagulants; Z79.2 Long term (current) use of antibiotics; Z86.711 Personal history of pulmonary embolism; Z87.891 Personal history of nicotine dependence
CPT/HCPCS: 36415; 71045; 76705; 80053; 81001; 83605; 84484; 85025; 85610; 85730; 87040; 87077; 87086; 87106; 87186; 93005; 93010; 93306; 94640; 94664; 94760; 96365; 96374; 96375; 96376; 99285-25; A9270; G0378; J0696; J1938; J2405; J3010

== ENCOUNTER 2024-10-08 07:04 | Emergency (ER) | payer OTHER ==
[~2024-10-08] VITALS: Ht 182.9 cm; Wt 104.3 kg
[~2024-10-08 07:04] MED LIST changes: +DILTIAZEM 24HR300 MG PO; +ENULOSE10 GM/156 PO; +JARDIANCE10 MG PO; +METO25 PO
[2024-10-08 07:48] LABS: Source, Urine Suprapubic Cath
[2024-10-08 07:52] LABS: Bilirubin, Urine Neg (Neg); Color, Urine Yellow (P-Yellow); Glucose Qualitative, Urine Neg (Neg); Ketones, Urine Neg (Neg); Leukocyte Esterase, Urine 3+ (Neg); Protein, Urine 3+ (Neg); Specific Gravity, Urine 1.015 (1.003-1.022); Urobilinogen, Urine NORM (Normal)
[2024-10-08 07:59] LABS: White Blood Cells, Urine TNTC /hpf (0-5)
[2024-10-08] MEDS ORDERED: CEFP200 PO (08:19)
[2024-10-08 08:34] VITALS: BP 162/108
[2024-10-11] MEDS ORDERED: NITR100CA PO (10:35)
== END 2024-10-08 08:36 | disposition home or self-care (01) ==
LOC: ER 07:04
PROVIDERS: Emergency Medicine
DX: T83.010A Breakdown (mechanical) of cystostomy catheter, initial encounter (principal); N39.0 Urinary tract infection, site not specified; J45.909 Unspecified asthma, uncomplicated; I10 Essential (primary) hypertension; E11.9 Type 2 diabetes mellitus without complications; Z87.891 Personal history of nicotine dependence; Z79.899 Other long term (current) drug therapy; Z88.8 Allergy status to other drugs, medicaments and biological substances
CPT/HCPCS: 81001; 87077; 87086; 87186; 99283

== ENCOUNTER 2024-10-23 04:19 | Emergency (ER) | payer OTHER ==
[~2024-10-23] VITALS: Ht 182.9 cm; Wt 104.3 kg
[~2024-10-23 04:19] MED LIST changes: +CEFP200 PO; +NITR100CA PO
[2024-10-23] MEDS ORDERED: NS 1,000 ML IV SCH (04:45)
[2024-10-23 05:06] LABS: Source, Urine Clean Catch
[2024-10-23 05:10] LABS: BASOPHILS ABSOLUTE AUTO 0.05 K/mm3 (0.00-0.23); BASOPHILS PERCENT AUTO 1 % (0-2); EOSINOPHILS ABSOLUTE AUTO 0.57 K/mm3 (0.00-0.68); EOSINOPHILS PERCENT AUTO 8 % (0-6); Hematocrit 41.1 % (37.0-53.0); Hemoglobin 13.7 g/dL (13.5-17.5); IMMATURE GRAN ABSOLUTE AUTO 0.02 K/mm3 (0.00-0.10); IMMATURE GRAN PERCENT AUTO 0 % (0-1); LYMPHOCYTES ABSOLUTE AUTO 1.33 K/mm3 (0.84-5.20); LYMPHOCYTES PERCENT AUTO 17 % (21-46); MONOCYTES ABSOLUTE AUTO 0.59 K/mm3 (0.16-1.47); MONOCYTES PERCENT AUTO 8 % (4-13); Mean Corpuscular HGB Conc 33.3 g/dL (31.5-36.5); Mean Corpuscular Volume 88 fL (80-100); NEUTROPHILS ABSOLUTE AUTO 5.08 K/mm3 (1.96-9.15); NEUTROPHILS PERCENT AUTO 66 % (41-73); NRBC ABSOLUTE 0.00 K/mm3 (0.00-0.02); NRBC Auto 0.0 /100 WBC (0.0-0.2); Platelet Count 145 K/mm3 (150-400); RDW Coefficient Variation 15.8 % (11.7-14.2); RDW Standard Deviation 50.9 fL (35.1-46.3)
[2024-10-23 05:13] LABS: Bilirubin, Urine Neg (Neg); Color, Urine Yellow (P-Yellow); Glucose Qualitative, Urine Neg (Neg); Ketones, Urine Neg (Neg); Leukocyte Esterase, Urine 3+ (Neg); Protein, Urine 2+ (Neg); Specific Gravity, Urine 1.010 (1.003-1.022); Urobilinogen, Urine NORM (Normal)
[2024-10-23 05:33] LABS: Alanine Aminotransfer (ALT/SGP 18.0 U/L (12-78); Albumin, Blood 3.6 g/dL (3.4-5.0); Albumin/Globulin Ratio 1.1 (0.8-1.8); Anion Gap 6.0 mmol/L (3-11); Aspartate Aminotrans (AST/SGOT 23.0 U/L (12-37); Bilirubin, Total 0.7 mg/dL (0.1-1.0); Blood Urea Nitrogen 9.0 mg/dL (8-24); CO2, Blood 27.0 mmol/L (21-32); Calcium, Blood 8.5 mg/dL (8.5-10.1); Chloride, Blood 107.0 mmol/L (98-108); Creatinine, Blood 0.88 mg/dL (0.60-1.20); Globulin, Blood 3.3 g/dL (2.2-4.0); Glucose, Blood 112.0 mg/dL (70-99); Potassium, Blood 3.3 mmol/L (3.5-5.5); Sodium, Blood 137.0 mmol/L (136-145); Total Protein, Blood 6.9 g/dL (6.4-8.2)
[2024-10-23 05:35] LABS: White Blood Cells, Urine TNTC /hpf (0-5)
[2024-10-23] MEDS ORDERED: CEFP200 PO (05:43)
[2024-10-23] MEDS ORDERED: Ondansetron HCl 2 MG / ML 2ML Vial IV ONE (06:00)
[2024-10-23] MEDS ORDERED: Ondansetron 4 MG SoluTab SL ONE (06:05)
[2024-10-23 06:09] VITALS: BP 170/107
== END 2024-10-23 06:11 | disposition home or self-care (01) ==
LOC: ER 04:19
PROVIDERS: Emergency Medicine
DX: T83.511A Infection and inflammatory reaction due to indwelling urethral catheter, initial encounter (principal); N39.0 Urinary tract infection, site not specified; E11.9 Type 2 diabetes mellitus without complications; I10 Essential (primary) hypertension; Z87.891 Personal history of nicotine dependence; J45.909 Unspecified asthma, uncomplicated; Z79.899 Other long term (current) drug therapy; Z88.8 Allergy status to other drugs, medicaments and biological substances
CPT/HCPCS: 80053; 81001; 85025; 87077; 87086; 87186; 99283; A9270; J7030

== ENCOUNTER 2025-01-28 05:15 | Emergency (ER) | payer OTHER ==
[~2025-01-28] VITALS: Ht 185.4 cm; Wt 113.4 kg
[~2025-01-28 05:15] MED LIST changes: +PANT40 PO
[2025-01-28 05:50] LABS: Source, Urine Clean Catch
[2025-01-28 05:54] LABS: Bilirubin, Urine Neg (Neg); Color, Urine Yellow (P-Yellow); Glucose Qualitative, Urine Neg (Neg); Ketones, Urine Neg (Neg); Leukocyte Esterase, Urine 3+ (Neg); Protein, Urine 3+ (Neg); Specific Gravity, Urine 1.020 (1.003-1.022); Urobilinogen, Urine NORM (Normal)
[2025-01-28 06:07] LABS: White Blood Cells, Urine TNTC /hpf (0-5)
[2025-01-28] MEDS ORDERED: CEPH500 PO (06:20)
[2025-01-28 06:31] VITALS: BP 145/73
== END 2025-01-28 06:32 | disposition home or self-care (01) ==
LOC: ER 05:15
PROVIDERS: Student in an Organized Health Care Education/Training Program
DX: T83.090A Other mechanical complication of cystostomy catheter, initial encounter (principal); T83.510A Infection and inflammatory reaction due to cystostomy catheter, initial encounter; N30.00 Acute cystitis without hematuria; Z88.8 Allergy status to other drugs, medicaments and biological substances; Z79.01 Long term (current) use of anticoagulants; Z79.899 Other long term (current) drug therapy; I10 Essential (primary) hypertension; J45.909 Unspecified asthma, uncomplicated; E11.9 Type 2 diabetes mellitus without complications; Z87.891 Personal history of nicotine dependence
CPT/HCPCS: 51705; 81001; 87086; 99283-25; A9270; C2627

== ENCOUNTER 2025-02-15 08:35 | Emergency (ER) | payer OTHER ==
[~2025-02-15] VITALS: Ht 182.9 cm; Wt 120.2 kg
[2025-02-15 09:09] LABS: Source, Urine Clean Catch
[2025-02-15 09:22] VITALS: BP 185/107
[2025-02-15] MEDS ORDERED: CEFU250T47 PO (09:25)
[2025-02-15 09:28] LABS: Bilirubin, Urine Neg (Neg); Color, Urine Yellow (P-Yellow); Glucose Qualitative, Urine Neg (Neg); Ketones, Urine Neg (Neg); Leukocyte Esterase, Urine 3+ (Neg); Protein, Urine 2+ (Neg); Specific Gravity, Urine 1.015 (1.003-1.022); Urobilinogen, Urine NORM (Normal)
[2025-02-15 09:31] LABS: White Blood Cells, Urine TNTC /hpf (0-5)
== END 2025-02-15 09:35 | disposition home or self-care (01) ==
LOC: ER 08:35
PROVIDERS: Physician Assistant
DX: T83.090A Other mechanical complication of cystostomy catheter, initial encounter (principal); N39.0 Urinary tract infection, site not specified; Z87.891 Personal history of nicotine dependence; Z88.8 Allergy status to other drugs, medicaments and biological substances
CPT/HCPCS: 51705; 81001; 87077; 87086; 87186; 99283; C2627

== ENCOUNTER 2025-03-16 11:00 | Emergency (ER) | payer OTHER ==
[~2025-03-16] VITALS: Ht 182.9 cm; Wt 117.9 kg
[~2025-03-16 11:00] MED LIST changes: +CEFU250T47 PO
[2025-03-16 11:24] LABS: Source, Urine Foley catheter
[2025-03-16 11:27] LABS: Bilirubin, Urine Neg (Neg); Color, Urine Yellow (P-Yellow); Glucose Qualitative, Urine Neg (Neg); Ketones, Urine Neg (Neg); Leukocyte Esterase, Urine 3+ (Neg); Protein, Urine 3+ (Neg); Specific Gravity, Urine 1.015 (1.003-1.022); Urobilinogen, Urine NORM (Normal)
[2025-03-16 12:25] LABS: White Blood Cells, Urine TNTC /hpf (0-5)
[2025-03-16 12:26] LABS: Red Blood Cells, Urine 25-50 /hpf (0-2)
[2025-03-16] MEDS ORDERED: AMOCLA875 PO (12:48)
[2025-03-16 12:57] VITALS: BP 198/58
== END 2025-03-16 12:57 | disposition home or self-care (01) ==
LOC: ER 11:00
PROVIDERS: Emergency Medicine
DX: T83.090A Other mechanical complication of cystostomy catheter, initial encounter (principal); N39.0 Urinary tract infection, site not specified; R31.9 Hematuria, unspecified; I10 Essential (primary) hypertension; E11.9 Type 2 diabetes mellitus without complications; J45.909 Unspecified asthma, uncomplicated; K74.60 Unspecified cirrhosis of liver; Z87.891 Personal history of nicotine dependence; Z88.8 Allergy status to other drugs, medicaments and biological substances; Z79.01 Long term (current) use of anticoagulants; Z79.84 Long term (current) use of oral hypoglycemic drugs; Z79.899 Other long term (current) drug therapy
CPT/HCPCS: 51705; 81001; 99283-25; A9270; C2627